=== PATIENT | female | born 1970 | race African-American/Black ===

== ENCOUNTER 2019-04-19 14:54 | Inpatient (IN) | payer OTHER ==
[~2019-04-19] VITALS: Ht 157.5 cm; Wt 69.9 kg
--- NOTE | 2019-04-19 15:26 | PHYS DOC ---
Past Medical History Past Medical History: Hypertension (AGATHA DOHERTY APRN) Past Surgical History: No Surgical History (AGATHA DOHERTY APRN) Alcohol Use: Rarely (AGATHA DOHERTY APRN) Adult General Chief Complaint Chief Complaint: ABDOMINAL PAIN HPI HPI Patient is a 48 year old female with history of hypertension presents to the ED today complaining of 5 out of 10 left-sided abdominal pain with nausea vomiting and diarrhea that began 5 days ago after arriving into the [facility] from [place] where she resides. Patient states sitting up exacerbates the pain. Denies any hematemesis or melena. She states laying on her back the pain. Denies any chest pain or shortness of breath. (AGATHA DOHERTY APRN) Review of Systems Review of Systems Constitutional: Denies fever or chills [] Eyes: Denies change in visual acuity, redness, or eye pain [] HENT: Denies nasal congestion or sore throat [] Respiratory: Denies cough or shortness of breath [] Cardiovascular: No additional information not addressed in HPI [] GI: Reports left-sided abdominal pain, nausea, vomiting, diarrhea : Denies dysuria or hematuria [] Musculoskeletal: Denies back pain or joint pain [] Integument: Denies rash or skin lesions [] Neurologic: Denies headache, focal weakness or sensory changes [] All other systems were reviewed and found to be within normal limits, except as documented in this note. (AGATHA DOHERTY APRN) Current Medications Current Medications Current Medications Medications (Trade) Dose Ordered Sig/Jose Start Time Stop Time Status Last Admin Dose Admin Ceftriaxone Sodium (Rocephin) 1 gm 1X ONCE 04/19/19 19:00 04/19/19 19:04 DC 04/19/19 19:11 1 GM Famotidine (Pepcid Vial) 20 mg 1X ONCE 04/19/19 15:30 04/19/19 15:31 DC 04/19/19 15:52 20 MG Fentanyl Citrate (Fentanyl 2ml Vial) 50 mcg PRN Q15MIN PRN 04/19/19 15:30 04/20/19 15:29 04/19/19 17:46 50 MCG Info (CONTRAST GIVEN -- Rx MONITORING) 1 each PRN DAILY PRN 04/19/19 16:00 04/21/19 15:59 Iohexol (Omnipaque 300 Mg/ml) 75 ml 1X ONCE 04/19/19 15:45 04/19/19 15:48 DC Morphine Sulfate (Morphine Sulfate) 4 mg PRN Q2HR PRN 04/19/19 19:00 04/20/19 18:59 04/19/19 19:10 4 MG Ondansetron HCl (Zofran) 4 mg PRN Q8HRS PRN 04/19/19 19:00 04/20/19 18:59 04/19/19 19:11 4 MG Sodium Chloride 1,000 ml @ 125 mls/hr 1X ONCE 04/19/19 19:00 04/20/19 02:59 (MORENA HO DO) Allergies Allergies Allergies Coded Allergies Type Severity Reaction Last Updated Verified No Known Drug Allergies 04/19/19 No (MORENA HO DO) Physical Exam Physical Exam Constitutional: Well developed, well nourished, no acute distress, non-toxic appearance. [] HENT: Normocephalic, atraumatic, bilateral external ears normal, oropharynx moist, no oral exudates, nose normal. [] Eyes: PERRLA, EOMI, conjunctiva normal, no discharge. [] Neck: Normal range of motion, no tenderness, supple, no stridor. [] Cardiovascular:Heart rate regular rhythm, no murmur [] Lungs & Thorax: Bilateral breath sounds clear to auscultation [] Abdomen: Bowel sounds normal, soft, diffuse tenderness the left side of the abdomen, slight tenderness on the right lower quadrant with negative psoas sign, negative obturator sign, negative Rovsing sign, negative Jo sign, no masses, no pulsatile masses. [] Patient is dry heaving. Skin: Warm, dry, no erythema, no rash. [] Back: No tenderness, no CVA tenderness. [] Extremities: No tenderness, no cyanosis, no clubbing, ROM intact, no edema. [] Neurologic: Alert and oriented X 3, normal motor function, normal sensory function, no focal deficits noted. [] Psychologic: Affect normal, judgement normal, mood normal. [] (AGATHA DOHERTY APRN) Current Patient Data Vital Signs Vital Signs Date Time Temp Pulse Resp B/P (MAP) Pulse Ox O2 Delivery O2 Flow Rate FiO2 04/19/19 19:10 18 99 Room Air 04/19/19 18:00 98 106/19 16:00 135/92 (106) 04/19/19 15:02 98.0 98.0 (MORENA HO DO) Lab Values Laboratory Tests Test 04/19/19 15:05 04/19/19 15:06 04/19/19 18:30 White Blood Count 6.5 x10^3/uL (4.0-11.0) Red Blood Count 5.62 x10^6/uL (3.50-5.40) H Hemoglobin 15.9 g/dL (12.0-15.5) H Hematocrit 47.8 % (36.0-47.0) H Mean Corpuscular Volume 85 fL (79-100) Mean Corpuscular Hemoglobin 28 pg (25-35) Mean Corpuscular Hemoglobin Concent 33 g/dL (31-37) Red Cell Distribution Width 13.2 % (11.5-14.5) Platelet Count 356 x10^3/uL (140-400) Neutrophils (%) (Auto) 70 % (31-73) Lymphocytes (%) (Auto) 16 % (24-48) L Monocytes (%) (Auto) 14 % (0-9) H Eosinophils (%) (Auto) 0 % (0-3) Basophils (%) (Auto) 0 % (0-3) Neutrophils # (Auto) 4.5 x10^3/uL (1.8-7.7) Lymphocytes # (Auto) 1.0 x10^3/uL (1.0-4.8) Monocytes # (Auto) 0.9 x10^3/uL (0.0-1.1) Eosinophils # (Auto) 0.0 x10^3/uL (0.0-0.7) Basophils # (Auto) 0.0 x10^3/uL (0.0-0.2) Sodium Level 137 mmol/L (136-145) Potassium Level 3.4 mmol/L (3.5-5.1) L Chloride Level 90 mmol/L (98-107) L Carbon Dioxide Level 31 mmol/L (21-32) Anion Gap 16 (6-14) H Blood Urea Nitrogen 49 mg/dL (7-20) H Creatinine 2.1 mg/dL (0.6-1.0) H Estimated GFR (Cockcroft-Gault) 24.9 BUN/Creatinine Ratio 23 (6-20) H Glucose Level 161 mg/dL (70-99) H Calcium Level 10.9 mg/dL (8.5-10.1) H Magnesium Level 2.6 mg/dL (1.8-2.4) H Total Bilirubin 1.4 mg/dL (0.2-1.0) H Aspartate Amino Transferase (AST) 23 U/L (15-37) Alanine Aminotransferase (ALT) 28 U/L (14-59) Alkaline Phosphatase 57 U/L (46-116) Creatine Kinase 80 U/L (26-192) Creatine Kinase MB (Mass) 1.7 ng/mL (0.0-3.6) Creatine Kinase MB Relative Index 2.1 % (0-4) Troponin I Quantitative 0.026 ng/mL (0.000-0.055) [id number]-Wkm-[id number]-Type Natriuretic Peptide 76 pg/mL (0-124) Total Protein 10.6 g/dL (6.4-8.2) H Albumin 4.7 g/dL (3.4-5.0) Albumin/Globulin Ratio 0.8 (1.0-1.7) L Lipase 339 U/L (73-393) Thyroid Stimulating Hormone (TSH) 1.214 uIU/mL (0.358-3.74) Ethyl Alcohol Level < 10 mg/dL (0-10) Urine Collection Type Void Urine Color [place] Urine Clarity Cloudy Urine pH 5.0 Urine Specific [place] >=1.030 Urine Protein 100 mg/dL (NEG-TRACE) Urine Glucose (UA) 100 mg/dL (NEG) Urine Ketones (Stick) Trace mg/dL (NEG) Urine Blood Negative (NEG) Urine Nitrite Negative (NEG) Urine Bilirubin Moderate (NEG) Urine Urobilinogen Dipstick 1.0 mg/dL (0.2 mg/dL) Urine Leukocyte Esterase Moderate (NEG) Urine RBC 0 /HPF (0-2) Urine WBC 1-4 /HPF (0-4) Urine Squamous Epithelial Cells Many /LPF Urine Amorphous Sediment Present /HPF Urine Bacteria Few /HPF (0-FEW) Urine Hyaline Casts Moderate /HPF Urine Mucus Slight /LPF Urine Opiates Screen Neg (NEG) Urine Methadone Screen Neg (NEG) Urine Barbiturates Neg (NEG) Urine Phencyclidine Screen Neg (NEG) Urine Amphetamine/Methamphetamine Neg (NEG) Urine Benzodiazepines Screen Neg (NEG) Urine Cocaine Screen Neg (NEG) Urine Cannabinoids Screen Neg (NEG) Urine Ethyl Alcohol Neg (NEG) Lactic Acid Level 1.5 mmol/L (0.4-2.0) Laboratory Tests 04/19/19 15:05 Laboratory Tests 04/19/19 15:05 (MORENA HO DO) Lab Values Laboratory Tests Test 04/19/19 15:05 04/19/19 15:06 04/19/19 18:30 White Blood Count 6.5 x10^3/uL (4.0-11.0) Red Blood Count 5.62 x10^6/uL (3.50-5.40) H Hemoglobin 15.9 g/dL (12.0-15.5) H Hematocrit 47.8 % (36.0-47.0) H Mean Corpuscular Volume 85 fL (79-100) Mean Corpuscular Hemoglobin 28 pg (25-35) Mean Corpuscular Hemoglobin Concent 33 g/dL (31-37) Red Cell Distribution Width 13.2 % (11.5-14.5) Platelet Count 356 x10^3/uL (140-400) Neutrophils (%) (Auto) 70 % (31-73) Lymphocytes (%) (Auto) 16 % (24-48) L Monocytes (%) (Auto) 14 % (0-9) H Eosinophils (%) (Auto) 0 % (0-3) Basophils (%) (Auto) 0 % (0-3) Neutrophils # (Auto) 4.5 x10^3/uL (1.8-7.7) Lymphocytes # (Auto) 1.0 x10^3/uL (1.0-4.8) Monocytes # (Auto) 0.9 x10^3/uL (0.0-1.1) Eosinophils # (Auto) 0.0 x10^3/uL (0.0-0.7) Basophils # (Auto) 0.0 x10^3/uL (0.0-0.2) Sodium Level 137 mmol/L (136-145) Potassium Level 3.4 mmol/L (3.5-5.1) L Chloride Level 90 mmol/L (98-107) L Carbon Dioxide Level 31 mmol/L (21-32) Anion Gap 16 (6-14) H Blood Urea Nitrogen 49 mg/dL (7-20) H Creatinine 2.1 mg/dL (0.6-1.0) H Estimated GFR (Cockcroft-Gault) 24.9 BUN/Creatinine Ratio 23 (6-20) H Glucose Level 161 mg/dL (70-99) H Calcium Level 10.9 mg/dL (8.5-10.1) H Magnesium Level 2.6 mg/dL (1.8-2.4) H Total Bilirubin 1.4 mg/dL (0.2-1.0) H Aspartate Amino Transferase (AST) 23 U/L (15-37) Alanine Aminotransferase (ALT) 28 U/L (14-59) Alkaline Phosphatase 57 U/L (46-116) Creatine Kinase 80 U/L (26-192) Creatine Kinase MB (Mass) 1.7 ng/mL (0.0-3.6) Creatine Kinase MB Relative Index 2.1 % (0-4) Troponin I Quantitative 0.026 ng/mL (0.000-0.055) FF-Tah-A-Type Natriuretic Peptide 76 pg/mL (0-124) Total Protein 10.6 g/dL (6.4-8.2) H Albumin 4.7 g/dL (3.4-5.0) Albumin/Globulin Ratio 0.8 (1.0-1.7) L Lipase 339 U/L (73-393) Thyroid Stimulating Hormone (TSH) 1.214 uIU/mL (0.358-3.74) Ethyl Alcohol Level < 10 mg/dL (0-10) Urine Collection Type Void Urine Color [place] Urine Clarity Cloudy Urine pH 5.0 Urine Specific [place] >=1.030 Urine Protein 100 mg/dL (NEG-TRACE) Urine Glucose (UA) 100 mg/dL (NEG) Urine Ketones (Stick) Trace mg/dL (NEG) Urine Blood Negative (NEG) Urine Nitrite Negative (NEG) Urine Bilirubin Moderate (NEG) Urine Urobilinogen Dipstick 1.0 mg/dL (0.2 mg/dL) Urine Leukocyte Esterase Moderate (NEG) Urine RBC 0 /HPF (0-2) Urine WBC 1-4 /HPF (0-4) Urine Squamous Epithelial Cells Many /LPF Urine Amorphous Sediment Present /HPF Urine Bacteria Few /HPF (0-FEW) Urine Hyaline Casts Moderate /HPF Urine Mucus Slight /LPF Urine Opiates Screen Neg (NEG) Urine Methadone Screen Neg (NEG) Urine Barbiturates Neg (NEG) Urine Phencyclidine Screen Neg (NEG) Urine Amphetamine/Methamphetamine Neg (NEG) Urine Benzodiazepines Screen Neg (NEG) Urine Cocaine Screen Neg (NEG) Urine Cannabinoids Screen Neg (NEG) Urine Ethyl Alcohol Neg (NEG) Lactic Acid Level 1.5 mmol/L (0.4-2.0) Laboratory Tests 04/19/19 15:05 Laboratory Tests 04/19/19 15:05 (AGATHA DOHERTY APRN) EKG EKG [address] Loza sinus rhythm non specific ST elevation on V2, V3 (AGATHA DOHERTY APRN) Radiology/Procedures Radiology/Procedures []PROCEDURE: CT ABDOMEN PELVIS WO CONTRAST Exam: CT abdomen and pelvis without contrast INDICATION: Left-sided abdominal pain TECHNIQUE: Sequential axial images through the abdomen and pelvis obtained without IV contrast. Sagittal and coronal reformatted images were reconstructed from the axial data and reviewed. Comparisons: None FINDINGS: Heart size is normal. No pericardial effusion. Visualized lung bases are clear. No pleural effusion. Evaluation of the solid organs is limited secondary to noncontrast technique. Liver, spleen, pancreas, gallbladder and adrenals are unremarkable. No perinephric inflammation or hydronephrosis. No renal or ureteral calculi are identified. Bladder is decompressed not well evaluated. Uterus is not enlarged. IUD is noted within the uterus. No abnormal adnexal mass. There is diffuse fluid-filled dilatation of the stomach and small bowel. The terminal ileum and colon are decompressed. Direct transition point is not identified however is likely somewhere in the pelvis. Abdominal aorta has a normal course and caliber. No enlarged intra-abdominal lymph nodes are identified. No suspicious osseous lesions or acute fractures. IMPRESSION: 1. Findings of high-grade small bowel obstruction with transition point somewhere in the pelvis at the distal ileum. Continued radiographic follow-up is recommended. 2. No signs of perforation. Exposure: One or more of the following in the visualized dose reduction techniques were utilized for this examination: 1. Automated exposure control 2. Adjustment of the MA and/or KV according to patient size 3. Use of iterative of reconstructive technique Electronically signed by: Mg Noriega MD (04/19/2019 4:37 PM) [facility] DICTATED and SIGNED BY: MG NORIEGA MD DATE: 04/19/19 8340 (AGATHA DOHERTY APRN) Course & Med Decision Making Course & Med Decision Making Pertinent Labs and Imaging studies reviewed. (See chart for details) This is a 48-year-old female patient who presents to the ED today with left- sided abdominal pain with nausea vomiting and diarrhea that began 5 days ago after arriving into the [facility] from [place]. Patient arrives in the ED w ith a bucket dry heaving Vitals on arrival to the ED temperature 98.0, heart rate 102, blood pressure 120/79, O2 sats 98%. CBC with a normal WBC, CMP with creatinine of 2.1, BUN of 49, patient denies any history of renal failure, but does seem to 0.6, bilirubin 1.4, troponin 0.026. CT of the abdomen and pelvic was noted for high-grade small bowel obstruction. NG tube was placed-IV fluids continued 1802-consulted with Dr. Manzano who will follow-up with patient [address] Johnson who accepted patient for admission (AGATHA DOHERTY APRN) Dragon Disclaimer Dragon Disclaimer This electronic medical record was generated, in whole or in part, using a voice recognition dictation system. (AGATHA DOHERTY APRN) Departure Departure Impression: Primary Impression: SBO (small bowel obstruction) Additional Impressions: UTI (urinary tract infection) ARF (acute renal failure) Disposition: ADMITTED INPATIENT Condition: STABLE Attending Signature Attending Signature I have reviewed the PA/BUS ESCORT's note and plan of care. I was available for consultation as needed during the patient's visit in the emergency department. I agree with the clinical impression, plan, and disposition. (MORENA HO DO) Problem Qualifiers Additional Impressions: UTI (urinary tract infection) Urinary tract infection type: site unspecified Hematuria presence: without hematuria Qualified Codes: N39.0 - Urinary tract infection, site not speci fied ARF (acute renal failure) Acute renal failure type: unspecified Qualified Codes: N17.9 - Acute kidney failure, unspecified AGATHA DOHERTY APRN Apr 19, 2019 15:26 MORENA HO DO Apr 19, 2019 19:15
[2019-04-19 15:30] LABS: BASO % 0 % (0-3); EOS % 0 % (0-3); HEMATOCRIT 47.8 % (36.0-47.0); HEMOGLOBIN 15.9 g/dL (12.0-15.5); LYMPH % 16 % (24-48); MEAN CORPUSCULAR HEMOGLOBIN 28 pg (25-35); MEAN CORPUSCULAR HGB CONC 33 g/dL (31-37); MEAN CORPUSCULAR VOLUME 85 fL (79-100); MONO # 0.9 x10^3/uL (0.0-1.1); MONO % 14 % (0-9); NEUT # 4.5 x10^3/uL (1.8-7.7); NEUT % 70 % (31-73); PLATELET COUNT 356 x10^3/uL (140-400); RED BLOOD COUNT 5.62 x10^6/uL (3.50-5.40); RED CELL DISTRIBUTION WIDTH 13.2 % (11.5-14.5); WHITE BLOOD COUNT 6.5 x10^3/uL (4.0-11.0)
[2019-04-19] MEDS ORDERED: FAMOTIDINE 20 MG/2 ML VIAL IVP ONE (15:30)
[2019-04-19] MEDS ORDERED: ONDANSETRON PF 4 MG/2 ML VIAL. IV ONE ×2 (15:30→17:45)
[2019-04-19] MEDS ORDERED: IV NORMAL SALINE 1000ML BAG 1,000 ML IV ONE ×3 (15:30→19:00)
[2019-04-19 15:35] LABS: BILIRUBIN,URINE MODERATE (NEG); CLARITY,URINE CLOUDY; COLOR,URINE ORANGE; NITRITE,URINE NEGATIVE (NEG); PROTEIN,URINE 100 mg/dL (NEG-TRACE)
[2019-04-19 15:42] LABS: CALCIUM 10.9 mg/dL (8.5-10.1); CREATININE 2.1 mg/dL (0.6-1.0); GFR 24.9; POTASSIUM 3.4 mmol/L (3.5-5.1)
[2019-04-19 15:42] LABS: AMPHETAMINE/METHAMPHETAMINE NEG (NEG); BARBITURATES NEG (NEG); BENZODIAZEPINES NEG (NEG); CANNABINOIDS NEG (NEG); COCAINE NEG (NEG); METHADONE NEG (NEG); OPIATES NEG (NEG); PHENCYCLIDINE NEG (NEG)
[2019-04-19] MEDS ORDERED: IOHEXOL 300 MG/ML 100ML VIAL. IV ONE (15:45)
[2019-04-19 15:47] LABS: AMORPHOUS SEDIMENT,UR PRESENT /HPF; HYALINE CASTS, URINE MODERATE /HPF; RBC,URINE 0 /HPF (0-2)
[2019-04-19 15:48] LABS: ALBUMIN 4.7 g/dL (3.4-5.0); ALBUMIN/GLOBULIN RATIO 0.8 (1.0-1.7); MAGNESIUM 2.6 mg/dL (1.8-2.4); TOTAL BILIRUBIN 1.4 mg/dL (0.2-1.0); TOTAL PROTEIN 10.6 g/dL (6.4-8.2)
[2019-04-19 15:48] LABS: SQUAMOUS EPITHELIAL CELL,UR MANY /LPF
[2019-04-19 15:49] LABS: BACTERIA,URINE FEW /HPF (0-FEW)
[2019-04-19] MEDS: fentaNYL PF VIAL 100 MCG/2 ML VIAL IV PRN ×2 (15:52→17:46)
[2019-04-19] MEDS ORDERED: CONTRAST GIVEN. MC PRN (16:00)
--- NOTE | 2019-04-19 16:40 | RAD ---
Exam: CT abdomen and pelvis without contrast INDICATION: Left-sided abdominal pain TECHNIQUE: Sequential axial images through the abdomen and pelvis obtained without IV contrast. Sagittal and coronal reformatted images were reconstructed from the axial data and reviewed. Comparisons: None FINDINGS: Heart size is normal. No pericardial effusion. Visualized lung bases are clear. No pleural effusion. Evaluation of the solid organs is limited secondary to noncontrast technique. Liver, spleen, pancreas, gallbladder and adrenals are unremarkable. No perinephric inflammation or hydronephrosis. No renal or ureteral calculi are identified. Bladder is decompressed not well evaluated. Uterus is not enlarged. IUD is noted within the uterus. No abnormal adnexal mass. There is diffuse fluid-filled dilatation of the stomach and small bowel. The terminal ileum and colon are decompressed. Direct transition point is not identified however is likely somewhere in the pelvis. Abdominal aorta has a normal course and caliber. No enlarged intra-abdominal lymph nodes are identified. No suspicious osseous lesions or acute fractures. IMPRESSION: 1. Findings of high-grade small bowel obstruction with transition point somewhere in the pelvis at the distal ileum. Continued radiographic follow-up is recommended. 2. No signs of perforation. Exposure: One or more of the following in the visualized dose reduction techniques were utilized for this examination: 1. Automated exposure control 2. Adjustment of the MA and/or KV according to patient size 3. Use of iterative of reconstructive technique Electronically signed by: Mg Dominique MD (04/19/2019 4:37 PM) [facility]
[2019-04-19] MEDS ORDERED: ONDANSETRON PF 4 MG/2 ML VIAL. IV PRN (19:00)
[2019-04-19] MEDS ORDERED: MORPHINE SULFATE 4 MG/ML VIAL. IV PRN (19:00)
[2019-04-19] MEDS ORDERED: cefTRIAXone IV Push 1 GM VIAL. IVP ONE (19:00)
[2019-04-19 20:20] VITALS: BP 153/87
--- NOTE | 2019-04-19 20:29 | PDOC1 ---
History and Physical Date of Admission Date of Admission DATE: 04/19/19 TIME: 20:17 Identification/Chief Complaint Chief Complaint Abdominal Pain, vomiting Source Source: Patient History of Present Illness History of Present Illness Ms Wu is a 48 year old Afghan female with history of hypertension presents to the ED today complaining of 5 out of 10 left-sided abdominal pain with nausea vomiting and diarrhea that began 5 days ago after arriving into the [facility] from [place] where she resides. Patient states sitting up exacerbates the pain. Denies any hematemesis or melena. She states laying on her back the pain. Denies any chest pain or shortness of breath. She has tried OTC meds with no relief. In ED was found with Cr 2.1, no hx of renal dysfunction, BUN 49, K 3.4 and elevated transaminases and on CT abdomen was found with high grade SBO. NGT was placed in ED to mitigate her copious vomiting. She is being admitted for further care Past Medical History Cardiovascular: HTN Pulmonary: No pertinent hx GI: No pertinent hx Heme/Onc: No pertinent hx Hepatobiliary: No pertinent hx Psych: No pertinent hx Rheumatologic: No pertinent hx Infectious disease: No pertinent hx ENT: No pertinent hx Renal/: No pertinent hx Endocrine: No pertinent hx Dermatology: No pertinent hx Grav: 2 Para: 2 Past Surgical History Past Surgical History: (x2), Other (IUD insertion) Family History Family History: Hypertension Social History Smoke: No ALCOHOL: none Drugs: None Current Problem List Problem List Problems Medical Problems: (1) ARF (acute renal failure) Status: Acute (2) SBO (small bowel obstruction) Status: Acute (3) UTI (urinary tract infection) Status: Acute Current Medications Current Medications Current Medications Fentanyl Citrate (Fentanyl 2ml Vial) 50 mcg PRN Q15MIN PRN IV PAIN GREATER THAN 3/10 Last administered on 04/19/19at 17:46; Start 04/19/19 at 15:30; Stop 04/20/19 at 15:29 Famotidine (Pepcid Vial) 20 mg 1X ONCE IVP Last administered on 04/19/19at 15:52; Start 04/19/19 at 15:30; Stop 04/19/19 at 15:31; Status DC Ondansetron HCl (Zofran) 4 mg 1X ONCE IV Last administered on 04/19/19at 15:49; Start 04/19/19 at 15:30; Stop 04/19/19 at 15:31; Status DC Sodium Chloride 1,000 ml @ 1,000 mls/hr 1X ONCE IV Last administered on 04/19/19at 15:53; Start 04/19/19 at 15:30; Stop 04/19/19 at 16:29; Status DC Iohexol (Omnipaque 300 Mg/ml) 75 ml 1X ONCE IV ; Start 04/19/19 at 15:45; Stop 04/19/19 at 15:48; Status DC Info (CONTRAST GIVEN -- Rx MONITORING) 1 each PRN DAILY PRN MC SEE COMMENTS; Start 04/19/19 at 16:00; Stop 04/21/19 at 15:59 Sodium Chloride 1,000 ml @ 1,000 mls/hr 1X ONCE IV Last administered on 04/19/19at 17:10; Start 04/19/19 at 16:15; Stop 04/19/19 at 17:14; Status DC Ondansetron HCl (Zofran) 4 mg 1X ONCE IV Last administered on 04/19/19at 17:44; Start 04/19/19 at 17:45; Stop 04/19/19 at 17:55; Status DC Ondansetron HCl (Zofran) 4 mg PRN Q8HRS PRN IV NAUSEA/VOMITING Last administered on 04/19/19at 19:11; Start 04/19/19 at 19:00; Stop 04/20/19 at 18:59 Morphine Sulfate (Morphine Sulfate) 4 mg PRN Q2HR PRN IV PAIN; Start 04/19/19 at 19:00; Stop 04/20/19 at 18:59 Ceftriaxone Sodium (Rocephin) 1 gm 1X ONCE IVP Last administered on 04/19/19at 19:11; Start 04/19/19 at 19:00; Stop 04/19/19 at 19:04; Status DC Sodium Chloride 1,000 ml @ 125 mls/hr 1X ONCE IV ; Start 04/19/19 at 19:00; Stop 04/20/19 at 02:59 Allergies Allergies: Coded Allergies: No Known Drug Allergies (Unverified , 04/19/19) ROS General: YES: Appetite; No: Chills, Night Sweats, Fatigue, Malaise, Other PSYCHOLOGICAL ROS: No: Anxiety, Behavioral Disorder, Concentration difficultie, Decreased libido, Depression, Disorientation, Hallucinations, Hostility, Irritablity, Memory difficulties, Mood Swings, Obsessive thoughts, Physical abuse, Sexual abuse, Sleep disturbances, Suicidal ideation, Other Eyes: No Blurry vision, No Decreased vision, No Double vision, No Dry eyes, No Excessive tearing, No Eye Pain, No Itchy Eyes, No Loss of vision, No Photophobia, No Scotomata, No Uses contacts, No Uses glasses, No Other HEENT: No: Heacaches, Visual Changes, Hearing change, Nasal congestion, Nasal discharge, Oral lesions, Sinus pain, Sore Throat, Epistaxis, Sneezing, Snoring, Tinnitus, Vertigo, Vocal changes, Other ALLERGY AND IMMUNOLOGY: No: Hives, Insect Bite Sensitivity, Itchy/Watery Eyes, Nasal Congestion, Post Nasal Drip, Seasonal Allergies, Other Hematological and Lymphatic: No: Bleeding Problems, Blood Clots, Blood Transfusions, Brusing, Night Sweats, Pallor, Swollen Lymph Nodes, Other ENDOCRINE: No: Breast Changes, Galactorrhea, Hair Pattern Changes, Hot Flashes, Malaise/lethargy, Mood Swings, Palpitations, Polydipsia/polyuria, Skin Changes, Temperature Intolerance, Unexpected Weight Changes, Other Breast: No New/Changing Breast Lumps, No Nipple changes, No Nipple discharge, No Other Respiratory: No: Cough, Hemoptysis, Orthopnea, Pleuritic Pain, Shortness of breath, SOB with excertion, Sputum Changes, Stridor, Tachypnea, Wheezing, Other Cardiovascular: No Chest Pain, No Palpitations, No Orthopnea, No Paroxysmal Noc. Dyspnea, No Edema, No Lt Headedness, No Other Gastrointestinal: Yes Nausea, Yes Vomiting, Yes Abdominal Pain, Yes Diarrhea; No Constipation, No Melena, No Hematochezia, No Other Genitourinary: No Dysuria, No Frequency, No Incontinence, No Hematuria, No Retention, No Discharge, No Urgency, No Pain, No Flank Pain, No Other, No , No , No , No , No , No , No Musculoskeletal: No Gait Disturbance, No Joint Pain, No Joint Stiffness, No Joint Swelling, No Muscle Pain, No Muscular Weakness, No Pain In:, No Swelling In:, No Other Neurological: No Behavorial Changes, No Bowel/Bladder ControlChng, No Confusion, No Dizziness, No Gait Disturbance, No Headaches, No Impaired Coord/balance, No Memory Loss, No Numbness/Tingling, No Seizures, No Speech Problems, No Tremors, No Visual Changes, No Weakness, No Other Skin: No Dry Skin, No Eczema, No Hair Changes, No Lumps, No Mole Changes, No Mottling, No Nail Changes, No Pruritus, No Rash, No Skin Lesion Changes, No Other, No Acne Physical Exam General: Alert, Oriented X3, Cooperative, No acute distress HEENT: Atraumatic, PERRLA, EOMI, Mucous membr. moist/pink, Other (NGT in right nares) Lungs: Clear to auscultation, Normal air movement Heart: S1S2, RRR, no gallops, no murmurs Abdomen: Soft, No hepatosplenomegaly, No masses, Other (hyperactive bowel sounds, LLQ tenderness) Rectal Exam: not examined Extremities: No clubbing, No cyanosis, No edema, Normal pulses, No tenderness/swelling Skin: No rashes, No breakdown, No significant lesion Neuro: Normal gait, Normal speech, Strength at 5/5 X4 ext, Normal tone, Sensation intact, Cranial nerves 3-12 NL, Reflexes 2+ Psych/Mental Status: Mental status NL, Mood NL Vitals Vitals Vital Signs Date Time Temp Pulse Resp B/P (MAP) Pulse Ox O2 Delivery O2 Flow Rate FiO2 04/19/19 18:00 98 16 97 Room Air 04/19/19 16:00 135/92 (106) 04/19/19 15:02 98.0 98.0 Labs Labs Laboratory Tests Test 04/19/19 15:05 04/19/19 15:06 04/19/19 18:30 White Blood Count 6.5 x10^3/uL (4.0-11.0) Red Blood Count 5.62 x10^6/uL (3.50-5.40) Hemoglobin 15.9 g/dL (12.0-15.5) Hematocrit 47.8 % (36.0-47.0) Mean Corpuscular Volume 85 fL (79-100) Mean Corpuscular Hemoglobin 28 pg (25-35) Mean Corpuscular Hemoglobin Concent 33 g/dL (31-37) Red Cell Distribution Width 13.2 % (11.5-14.5) Platelet Count 356 x10^3/uL (140-400) Neutrophils (%) (Auto) 70 % (31-73) Lymphocytes (%) (Auto) 16 % (24-48) Monocytes (%) (Auto) 14 % (0-9) Eosinophils (%) (Auto) 0 % (0-3) Basophils (%) (Auto) 0 % (0-3) Neutrophils # (Auto) 4.5 x10^3/uL (1.8-7.7) Lymphocytes # (Auto) 1.0 x10^3/uL (1.0-4.8) Monocytes # (Auto) 0.9 x10^3/uL (0.0-1.1) Eosinophils # (Auto) 0.0 x10^3/uL (0.0-0.7) Basophils # (Auto) 0.0 x10^3/uL (0.0-0.2) Sodium Level 137 mmol/L (136-145) Potassium Level 3.4 mmol/L (3.5-5.1) Chloride Level 90 mmol/L (98-107) Carbon Dioxide Level 31 mmol/L (21-32) Anion Gap 16 (6-14) Blood Urea Nitrogen 49 mg/dL (7-20) Creatinine 2.1 mg/dL (0.6-1.0) Estimated GFR (Cockcroft-Gault) 24.9 BUN/Creatinine Ratio 23 (6-20) Glucose Level 161 mg/dL (70-99) Calcium Level 10.9 mg/dL (8.5-10.1) Magnesium Level 2.6 mg/dL (1.8-2.4) Total Bilirubin 1.4 mg/dL (0.2-1.0) Aspartate Amino Transf (AST/SGOT) 23 U/L (15-37) Alanine Aminotransferase (ALT/SGPT) 28 U/L (14-59) Alkaline Phosphatase 57 U/L (46-116) Creatine Kinase 80 U/L (26-192) Creatine Kinase MB (Mass) 1.7 ng/mL (0.0-3.6) Creatine Kinase MB Relative Index 2.1 % (0-4) Troponin I Quantitative 0.026 ng/mL (0.000-0.055) GJ-Mor-P-Type Natriuretic Peptide 76 pg/mL (0-124) Total Protein 10.6 g/dL (6.4-8.2) Albumin 4.7 g/dL (3.4-5.0) Albumin/Globulin Ratio 0.8 (1.0-1.7) Lipase 339 U/L (73-393) Thyroid Stimulating Hormone (TSH) 1.214 uIU/mL (0.358-3.74) Ethyl Alcohol Level < 10 mg/dL (0-10) Urine Collection Type Void Urine Color [place] Urine Clarity Cloudy Urine pH 5.0 Urine Specific Glen >=1.030 Urine Protein 100 mg/dL (NEG-TRACE) Urine Glucose (UA) 100 mg/dL (NEG) Urine Ketones (Stick) Trace mg/dL (NEG) Urine Blood Negative (NEG) Urine Nitrite Negative (NEG) Urine Bilirubin Moderate (NEG) Urine Urobilinogen Dipstick 1.0 mg/dL (0.2 mg/dL) Urine Leukocyte Esterase Moderate (NEG) Urine RBC 0 /HPF (0-2) Urine WBC 1-4 /HPF (0-4) Urine Squamous Epithelial Cells Many /LPF Urine Amorphous Sediment Present /HPF Urine Bacteria Few /HPF (0-FEW) Urine Hyaline Casts Moderate /HPF Urine Mucus Slight /LPF Urine Opiates Screen Neg (NEG) Urine Methadone Screen Neg (NEG) Urine Barbiturates Neg (NEG) Urine Phencyclidine Screen Neg (NEG) Urine Amphetamine/Methamphetamine Neg (NEG) Urine Benzodiazepines Screen Neg (NEG) Urine Cocaine Screen Neg (NEG) Urine Cannabinoids Screen Neg (NEG) Urine Ethyl Alcohol Neg (NEG) Lactic Acid Level 1.5 mmol/L (0.4-2.0) Laboratory Tests Test 04/19/19 15:05 04/19/19 15:06 04/19/19 18:30 White Blood Count 6.5 x10^3/uL (4.0-11.0) Red Blood Count 5.62 x10^6/uL (3.50-5.40) Hemoglobin 15.9 g/dL (12.0-15.5) Hematocrit 47.8 % (36.0-47.0) Mean Corpuscular Volume 85 fL (79-100) Mean Corpuscular Hemoglobin 28 pg (25-35) Mean Corpuscular Hemoglobin Concent 33 g/dL (31-37) Red Cell Distribution Width 13.2 % (11.5-14.5) Platelet Count 356 x10^3/uL (140-400) Neutrophils (%) (Auto) 70 % (31-73) Lymphocytes (%) (Auto) 16 % (24-48) Monocytes (%) (Auto) 14 % (0-9) Eosinophils (%) (Auto) 0 % (0-3) Basophils (%) (Auto) 0 % (0-3) Neutrophils # (Auto) 4.5 x10^3/uL (1.8-7.7) Lymphocytes # (Auto) 1.0 x10^3/uL (1.0-4.8) Monocytes # (Auto) 0.9 x10^3/uL (0.0-1.1) Eosinophils # (Auto) 0.0 x10^3/uL (0.0-0.7) Basophils # (Auto) 0.0 x10^3/uL (0.0-0.2) Sodium Level 137 mmol/L (136-145) Potassium Level 3.4 mmol/L (3.5-5.1) Chloride Level 90 mmol/L (98-107) Carbon Dioxide Level 31 mmol/L (21-32) Anion Gap 16 (6-14) Blood Urea Nitrogen 49 mg/dL (7-20) Creatinine 2.1 mg/dL (0.6-1.0) Estimated GFR (Cockcroft-Gault) 24.9 BUN/Creatinine Ratio 23 (6-20) Glucose Level 161 mg/dL (70-99) Calcium Level 10.9 mg/dL (8.5-10.1) Magnesium Level 2.6 mg/dL (1.8-2.4) Total Bilirubin 1.4 mg/dL (0.2-1.0) Aspartate Amino Transf (AST/SGOT) 23 U/L (15-37) Alanine Aminotransferase (ALT/SGPT) 28 U/L (14-59) Alkaline Phosphatase 57 U/L (46-116) Creatine Kinase 80 U/L (26-192) Creatine Kinase MB (Mass) 1.7 ng/mL (0.0-3.6) Creatine Kinase MB Relative Index 2.1 % (0-4) Troponin I Quantitative 0.026 ng/mL (0.000-0.055) NM-Atz-W-Type Natriuretic Peptide 76 pg/mL (0-124) Total Protein 10.6 g/dL (6.4-8.2) Albumin 4.7 g/dL (3.4-5.0) Albumin/Globulin Ratio 0.8 (1.0-1.7) Lipase 339 U/L (73-393) Thyroid Stimulating Hormone (TSH) 1.214 uIU/mL (0.358-3.74) Ethyl Alcohol Level < 10 mg/dL (0-10) Urine Collection Type Void Urine Color [place] Urine Clarity Cloudy Urine pH 5.0 Urine Specific [place] >=1.030 Urine Protein 100 mg/dL (NEG-TRACE) Urine Glucose (UA) 100 mg/dL (NEG) Urine Ketones (Stick) Trace mg/dL (NEG) Urine Blood Negative (NEG) Urine Nitrite Negative (NEG) Urine Bilirubin Moderate (NEG) Urine Urobilinogen Dipstick 1.0 mg/dL (0.2 mg/dL) Urine Leukocyte Esterase Moderate (NEG) Urine RBC 0 /HPF (0-2) Urine WBC 1-4 /HPF (0-4) Urine Squamous Epithelial Cells Many /LPF Urine Amorphous Sediment Present /HPF Urine Bacteria Few /HPF (0-FEW) Urine Hyaline Casts Moderate /HPF Urine Mucus Slight /LPF Urine Opiates Screen Neg (NEG) Urine Methadone Screen Neg (NEG) Urine Barbiturates Neg (NEG) Urine Phencyclidine Screen Neg (NEG) Urine Amphetamine/Methamphetamine Neg (NEG) Urine Benzodiazepines Screen Neg (NEG) Urine Cocaine Screen Neg (NEG) Urine Cannabinoids Screen Neg (NEG) Urine Ethyl Alcohol Neg (NEG) Lactic Acid Level 1.5 mmol/L (0.4-2.0) Images Images CT abdomen - Heart size is normal. No pericardial effusion. Visualized lung bases are clear. No pleural effusion. Evaluation of the solid organs is limited secondary to noncontrast technique. Liver, spleen, pancreas, gallbladder and adrenals are unremarkable. No perinephric inflammation or hydronephrosis. No renal or ureteral calculi are identified. Bladder is decompressed not well evaluated. Uterus is not enlarged. IUD is noted within the uterus. No abnormal adnexal mass. There is diffuse fluid-filled dilatation of the stomach and small bowel. The terminal ileum and colon are decompressed. Direct transition point is not identified however is likely somewhere in the pelvis. Abdominal aorta has a normal course and caliber. No enlarged intra-abdominal lymph nodes are identified. No suspicious osseous lesions or acute fractures. IMPRESSION: 1. Findings of high-grade small bowel obstruction with transition point somewhere in the pelvis at the distal ileum. Continued radiographic follow-up is recommended. 2. No signs of perforation. VTE Prophylaxis Ordered VTE Prophylaxis Devices: Yes VTE Pharmacological Prophylaxi: No Assessment/Plan Assessment/Plan A/P: SBO - x2 only risk factors. NPO, NGT in place, General surgery consulted. Pain control IV, IVF, anti-emetics IV MARITZA - no known renal history. Likely vasomotor nephropathy from her GI illness prior to SBO. will give aggressive IVF. If no improvement would consult nephro and obtain renal US, urine studies Hypokalemia - likely from diarrhea. Will replace IV, trend Hyperglycemia - possibly stress induced. She does not wish for diabetic testing, in fact wants to go home soon Hypercalcemia - likely from hemoconcentration, will trend Elevated transaminases - likely from GI sx FEN - NPO PPX - SCDs, PPI FULL CODE Dispo - inpatient for SBO MARLON CRONIN MD Apr 19, 2019 20:29
[2019-04-19] MEDS ORDERED: BENZOCAINE/MENTHOL LOZENGE. PO PRN (20:30)
[2019-04-19] MEDS: PANTOPRAZOLE IV PUSH 40 MG VIAL. IVP SCH (20:58)
[2019-04-19] MEDS: IV RINGERS,LACTATED 1000ML 1,000 ML IV SCH (20:59)
[2019-04-19 23:00] VITALS: BP 145/89
--- NOTE | 2019-04-19 23:23 | NUR ---
Pt.arrived around 2019 via bed from ED w/ SBO, ARF and UTI. She is A/O x4 and will make needs known.
[2019-04-20] MEDS ORDERED: AMLO5TAB10 PO (02:19)
[2019-04-20 03:00] VITALS: BP 138/90
[2019-04-20] MEDS: fentaNYL PF VIAL 100 MCG/2 ML VIAL IV PRN (03:58)
[2019-04-20] MEDS: ONDANSETRON PF 4 MG/2 ML VIAL. IV PRN ×2 (04:03→16:35)
[2019-04-20] MEDS: IV RINGERS,LACTATED 1000ML 1,000 ML IV SCH ×2 (04:05→08:27)
[2019-04-20 05:50] LABS: BASO % 0 % (0-3); EOS # 0.1 x10^3/uL (0.0-0.7); EOS % 2 % (0-3); HEMATOCRIT 37.6 % (36.0-47.0); HEMOGLOBIN 12.6 g/dL (12.0-15.5); LYMPH # 1.1 x10^3/uL (1.0-4.8); LYMPH % 20 % (24-48); MEAN CORPUSCULAR HEMOGLOBIN 29 pg (25-35); MEAN CORPUSCULAR HGB CONC 33 g/dL (31-37); MEAN CORPUSCULAR VOLUME 86 fL (79-100); MONO # 1.1 x10^3/uL (0.0-1.1); MONO % 19 % (0-9); NEUT # 3.3 x10^3/uL (1.8-7.7); NEUT % 60 % (31-73); PLATELET COUNT 263 x10^3/uL (140-400); RED CELL DISTRIBUTION WIDTH 12.9 % (11.5-14.5); WHITE BLOOD COUNT 5.5 x10^3/uL (4.0-11.0)
[2019-04-20 06:20] LABS: ALBUMIN 3.4 g/dL (3.4-5.0); CALCIUM 8.7 mg/dL (8.5-10.1); CREATININE 1.1 mg/dL (0.6-1.0); DIRECT BILIRUBIN 0.3 mg/dL (0.0-0.2); GFR 63.6; POTASSIUM 3.4 mmol/L (3.5-5.1); TOTAL BILIRUBIN 0.9 mg/dL (0.2-1.0)
--- NOTE | 2019-04-20 06:28 | EKG ---
[facility] [address] [place] [id number] Test Date: 2019-04-19 Test Time: 15:46:37 Pat Name: VALERIA STEVEN Department: Room: 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
[2019-04-20 07:00] VITALS: BP 136/84
[2019-04-20] MEDS: PANTOPRAZOLE IV PUSH 40 MG VIAL. IVP SCH (08:28)
[2019-04-20] MEDS ORDERED: PHENOL ORAL SPRAY 177ML BOTTLE. PO PRN (08:30)
--- NOTE | 2019-04-20 08:33 | PDOC2 ---
VESTA HERNANDEZ PEN AND PENCIL REPAIRER 04/20/19 0833: CONSULT Date of Consult Date of Consult DATE: 04/20/19 TIME: 08:30 Reason for Consult Reason for Consult: sbo Referring Physician Referring Physician: ER Identification/Chief Complaint Chief Complaint vomiting Source Source: Chart review, Patient History of Present Illness Reason for Visit: Returned from [place] on Saturday, had diarrhea, nausea and emesis. Unable to keep anything down. Diarrhea slowed, however ongoing emesis and inability to keep PO down Minimal flatus at this point only surgical hx is c section x 2 Past Medical History Cardiovascular: HTN Pulmonary: No pertinent hx GI: No pertinent hx Heme/Onc: No pertinent hx Hepatobiliary: No pertinent hx Psych: No pertinent hx Rheumatologic: No pertinent hx Infectious disease: No pertinent hx ENT: No pertinent hx Renal/: No pertinent hx Endocrine: No pertinent hx Dermatology: No pertinent hx Grav: 2 Para: 2 Past Surgical History Past Surgical History: (x2), Other (IUD insertion) Family History Family History: Hypertension Social History No ALCOHOL: none Drugs: None Current Problem List Problem List Problems Medical Problems: (1) ARF (acute renal failure) Status: Acute (2) SBO (small bowel obstruction) Status: Acute (3) UTI (urinary tract infection) Status: Acute Current Medications Current Medications Current Medications Fentanyl Citrate (Fentanyl 2ml Vial) 50 mcg PRN Q15MIN PRN IV PAIN GREATER THAN 3/10 Last administered on 04/20/19at 03:58; Start 04/19/19 at 15:30; Stop 04/20/19 at 15:29 Famotidine (Pepcid Vial) 20 mg 1X ONCE IVP Last administered on 04/19/19at 15:52; Start 04/19/19 at 15:30; Stop 04/19/19 at 15:31; Status DC Ondansetron HCl (Zofran) 4 mg 1X ONCE IV Last administered on 04/19/19at 15:49; Start 04/19/19 at 15:30; Stop 04/19/19 at 15:31; Status DC Sodium Chloride 1,000 ml @ 1,000 mls/hr 1X ONCE IV Last administered on 04/19/19at 15:53; Start 04/19/19 at 15:30; Stop 04/19/19 at 16:29; Status DC Iohexol (Omnipaque 300 Mg/ml) 75 ml 1X ONCE IV ; Start 04/19/19 at 15:45; Stop 04/19/19 at 15:48; Status DC Info (CONTRAST GIVEN -- Rx MONITORING) 1 each PRN DAILY PRN MC SEE COMMENTS; Start 04/19/19 at 16:00; Stop 04/21/19 at 15:59 Sodium Chloride 1,000 ml @ 1,000 mls/hr 1X ONCE IV Last administered on 04/19/19at 17:10; Start 04/19/19 at 16:15; Stop 04/19/19 at 17:14; Status DC Ondansetron HCl (Zofran) 4 mg 1X ONCE IV Last administered on 04/19/19at 17:44; Start 04/19/19 at 17:45; Stop 04/19/19 at 17:55; Status DC Ondansetron HCl (Zofran) 4 mg PRN Q8HRS PRN IV NAUSEA/VOMITING Last administered on 04/19/19at 19:11; Start 04/19/19 at 19:00; Stop 04/19/19 at 20:22; Status DC Morphine Sulfate (Morphine Sulfate) 4 mg PRN Q2HR PRN IV PAIN; Start 04/19/19 at 19:00 Ceftriaxone Sodium (Rocephin) 1 gm 1X ONCE IVP Last administered on 04/19/19at 19:11; Start 04/19/19 at 19:00; Stop 04/19/19 at 19:04; Status DC Sodium Chloride 1,000 ml @ 125 mls/hr 1X ONCE IV Last administered on 04/19/19at 20:55; Start 04/19/19 at 19:00; Stop 04/20/19 at 02:59; Status DC Ondansetron HCl (Zofran) 4 mg PRN Q6HRS PRN IV NAUSEA/VOMITING Last administered on 04/20/19 04:03; Start 04/19/19 at 20:30 Ringer's Solution 1,000 ml @ 100 mls/hr Q10H IV Last administered on 04/20/19at 08:27; Start 04/19/19 at 20:30 Pantoprazole Sodium (PROTONIX VIAL for IV PUSH) 40 mg DAILYAC IVP Last administered on 04/20/19at 08:28; Start 04/19/19 at 20:30 Throat Lozenges (Cepacol Sore Throat Lozenge) 1 tricia PRN Q2HRS PRN PO SORE THROAT; Start 04/19/19 at 20:30 Active Scripts Active Reported Amlodipine Besylate 5 Mg Tablet 5 Mg PO DAILY Allergies Allergies: Coded Allergies: No Known Drug Allergies (Unverified , 04/19/19) ROS General: YES: Chills, Other (Fevers, subjective) PSYCHOLOGICAL ROS: No: Anxiety, Depression Eyes: No Blurry vision, No Double vision HEENT: YES: Sore Throat; No: Heacaches Hematological and Lymphatic: No: Bleeding Problems, Blood Clots Respiratory: No: Cough, Shortness of breath Cardiovascular: No Chest Pain, No Palpitations Gastrointestinal: Yes Other (see hpi) Genitourinary: No Dysuria, No Hematuria Musculoskeletal: No Joint Pain, No Muscle Pain Neurological: No Impaired Coord/balance, No Numbness/Tingling Skin: No Pruritus, No Rash Physical Exam General: Alert, Oriented X3, Cooperative, No acute distress HEENT: PERRLA, Mucous membr. moist/pink, Other (NG bilious ) Lungs: Clear to auscultation, Normal air movement Heart: Regular rate, Normal S1, Normal S2, No murmurs Abdomen: Soft, Other (ND, NTTP) Extremities: No clubbing, No cyanosis Skin: No rashes, No breakdown Neuro: Normal gait, Normal speech Psych/Mental Status: Mental status NL, Mood NL MUSCULOSKELETAL: No deformity, No swelling Vitals VITALS Vital Signs Date Time Temp Pulse Resp B/P (MAP) Pulse Ox O2 Delivery O2 Flow Rate FiO2 04/20/19 07:00 97.7 75 16 136/84 (101) 98 97.7 04/20/19 04:29 Room Air Labs Labs Laboratory Tests Test 04/19/19 15:05 04/19/19 15:06 04/19/19 18:30 04/20/19 05:00 White Blood Count 6.5 x10^3/uL (4.0-11.0) 5.5 x10^3/uL (4.0-11.0) Red Blood Count 5.62 x10^6/uL (3.50-5.40) 4.40 x10^6/uL (3.50-5.40) Hemoglobin 15.9 g/dL (12.0-15.5) 12.6 g/dL (12.0-15.5) Hematocrit 47.8 % (36.0-47.0) 37.6 % (36.0-47.0) Mean Corpuscular Volume 85 fL (79-100) 86 fL (79-100) Mean Corpuscular Hemoglobin 28 pg (25-35) 29 pg (25-35) Mean Corpuscular Hemoglobin Concent 33 g/dL (31-37) 33 g/dL (31-37) Red Cell Distribution Width 13.2 % (11.5-14.5) 12.9 % (11.5-14.5) Platelet Count 356 x10^3/uL (140-400) 263 x10^3/uL (140-400) Neutrophils (%) (Auto) 70 % (31-73) 60 % (31-73) Lymphocytes (%) (Auto) 16 % (24-48) 20 % (24-48) Monocytes (%) (Auto) 14 % (0-9) 19 % (0-9) Eosinophils (%) (Auto) 0 % (0-3) 2 % (0-3) Basophils (%) (Auto) 0 % (0-3) 0 % (0-3) Neutrophils # (Auto) 4.5 x10^3/uL (1.8-7.7) 3.3 x10^3/uL (1.8-7.7) Lymphocytes # (Auto) 1.0 x10^3/uL (1.0-4.8) 1.1 x10^3/uL (1.0-4.8) Monocytes # (Auto) 0.9 x10^3/uL (0.0-1.1) 1.1 x10^3/uL (0.0-1.1) Eosinophils # (Auto) 0.0 x10^3/uL (0.0-0.7) 0.1 x10^3/uL (0.0-0.7) Basophils # (Auto) 0.0 x10^3/uL (0.0-0.2) 0.0 x10^3/uL (0.0-0.2) Sodium Level 137 mmol/L (136-145) 141 mmol/L (136-145) Potassium Level 3.4 mmol/L (3.5-5.1) 3.4 mmol/L (3.5-5.1) Chloride Level 90 mmol/L (98-107) 101 mmol/L (98-107) Carbon Dioxide Level 31 mmol/L (21-32) 29 mmol/L (21-32) Anion Gap 16 (6-14) 11 (6-14) Blood Urea Nitrogen 49 mg/dL (7-20) 35 mg/dL (7-20) Creatinine 2.1 mg/dL (0.6-1.0) 1.1 mg/dL (0.6-1.0) Estimated GFR (Cockcroft-Gault) 24.9 63.6 BUN/Creatinine Ratio 23 (6-20) Glucose Level 161 mg/dL (70-99) 116 mg/dL (70-99) Calcium Level 10.9 mg/dL (8.5-10.1) 8.7 mg/dL (8.5-10.1) Magnesium Level 2.6 mg/dL (1.8-2.4) Total Bilirubin 1.4 mg/dL (0.2-1.0) 0.9 mg/dL (0.2-1.0) Aspartate Amino Transf (AST/SGOT) 23 U/L (15-37) 19 U/L (15-37) Alanine Aminotransferase (ALT/SGPT) 28 U/L (14-59) 21 U/L (14-59) Alkaline Phosphatase 57 U/L (46-116) 41 U/L (46-116) Creatine Kinase 80 U/L (26-192) Creatine Kinase MB (Mass) 1.7 ng/mL (0.0-3.6) Creatine Kinase MB Relative Index 2.1 % (0-4) Troponin I Quantitative 0.026 ng/mL (0.000-0.055) LR-Uqi-P-Type Natriuretic Peptide 76 pg/mL (0-124) Total Protein 10.6 g/dL (6.4-8.2) 8.0 g/dL (6.4-8.2) Albumin 4.7 g/dL (3.4-5.0) 3.4 g/dL (3.4-5.0) Albumin/Globulin Ratio 0.8 (1.0-1.7) Lipase 339 U/L (73-393) Thyroid Stimulating Hormone (TSH) 1.214 uIU/mL (0.358-3.74) Ethyl Alcohol Level < 10 mg/dL (0-10) Urine Collection Type Void Urine Color [place] Urine Clarity Cloudy Urine pH 5.0 Urine Specific Alpha >=1.030 Urine Protein 100 mg/dL (NEG-TRACE) Urine Glucose (UA) 100 mg/dL (NEG) Urine Ketones (Stick) Trace mg/dL (NEG) Urine Blood Negative (NEG) Urine Nitrite Negative (NEG) Urine Bilirubin Moderate (NEG) Urine Urobilinogen Dipstick 1.0 mg/dL (0.2 mg/dL) Urine Leukocyte Esterase Moderate (NEG) Urine RBC 0 /HPF (0-2) Urine WBC 1-4 /HPF (0-4) Urine Squamous Epithelial Cells Many /LPF Urine Amorphous Sediment Present /HPF Urine Bacteria Few /HPF (0-FEW) Urine Hyaline Casts Moderate /HPF Urine Mucus Slight /LPF Urine Opiates Screen Neg (NEG) Urine Methadone Screen Neg (NEG) Urine Barbiturates Neg (NEG) Urine Phencyclidine Screen Neg (NEG) Urine Amphetamine/Methamphetamine Neg (NEG) Urine Benzodiazepines Screen Neg (NEG) Urine Cocaine Screen Neg (NEG) Urine Cannabinoids Screen Neg (NEG) Urine Ethyl Alcohol Neg (NEG) Lactic Acid Level 1.5 mmol/L (0.4-2.0) Direct Bilirubin 0.3 mg/dL (0.0-0.2) Laboratory Tests Test 04/19/19 15:05 04/19/19 15:06 04/19/19 18:30 04/20/19 05:00 White Blood Count 6.5 x10^3/uL (4.0-11.0) 5.5 x10^3/uL (4.0-11.0) Red Blood Count 5.62 x10^6/uL (3.50-5.40) 4.40 x10^6/uL (3.50-5.40) Hemoglobin 15.9 g/dL (12.0-15.5) 12.6 g/dL (12.0-15.5) Hematocrit 47.8 % (36.0-47.0) 37.6 % (36.0-47.0) Mean Corpuscular Volume 85 fL (79-100) 86 fL (79-100) Mean Corpuscular Hemoglobin 28 pg (25-35) 29 pg (25-35) Mean Corpuscular Hemoglobin Concent 33 g/dL (31-37) 33 g/dL (31-37) Red Cell Distribution Width 13.2 % (11.5-14.5) 12.9 % (11.5-14.5) Platelet Count 356 x10^3/uL (140-400) 263 x10^3/uL (140-400) Neutrophils (%) (Auto) 70 % (31-73) 60 % (31-73) Lymphocytes (%) (Auto) 16 % (24-48) 20 % (24-48) Monocytes (%) (Auto) 14 % (0-9) 19 % (0-9) Eosinophils (%) (Auto) 0 % (0-3) 2 % (0-3) Basophils (%) (Auto) 0 % (0-3) 0 % (0-3) Neutrophils # (Auto) 4.5 x10^3/uL (1.8-7.7) 3.3 x10^3/uL (1.8-7.7) Lymphocytes # (Auto) 1.0 x10^3/uL (1.0-4.8) 1.1 x10^3/uL (1.0-4.8) Monocytes # (Auto) 0.9 x10^3/uL (0.0-1.1) 1.1 x10^3/uL (0.0-1.1) Eosinophils # (Auto) 0.0 x10^3/uL (0.0-0.7) 0.1 x10^3/uL (0.0-0.7) Basophils # (Auto) 0.0 x10^3/uL (0.0-0.2) 0.0 x10^3/uL (0.0-0.2) Sodium Level 137 mmol/L (136-145) 141 mmol/L (136-145) Potassium Level 3.4 mmol/L (3.5-5.1) 3.4 mmol/L (3.5-5.1) Chloride Level 90 mmol/L (98-107) 101 mmol/L (98-107) Carbon Dioxide Level 31 mmol/L (21-32) 29 mmol/L (21-32) Anion Gap 16 (6-14) 11 (6-14) Blood Urea Nitrogen 49 mg/dL (7-20) 35 mg/dL (7-20) Creatinine 2.1 mg/dL (0.6-1.0) 1.1 mg/dL (0.6-1.0) Estimated GFR (Cockcroft-Gault) 24.9 63.6 BUN/Creatinine Ratio 23 (6-20) Glucose Level 161 mg/dL (70-99) 116 mg/dL (70-99) Calcium Level 10.9 mg/dL (8.5-10.1) 8.7 mg/dL (8.5-10.1) Magnesium Level 2.6 mg/dL (1.8-2.4) Total Bilirubin 1.4 mg/dL (0.2-1.0) 0.9 mg/dL (0.2-1.0) Aspartate Amino Transf (AST/SGOT) 23 U/L (15-37) 19 U/L (15-37) Alanine Aminotransferase (ALT/SGPT) 28 U/L (14-59) 21 U/L (14-59) Alkaline Phosphatase 57 U/L (46-116) 41 U/L (46-116) Creatine Kinase 80 U/L (26-192) Creatine Kinase MB (Mass) 1.7 ng/mL (0.0-3.6) Creatine Kinase MB Relative Index 2.1 % (0-4) Troponin I Quantitative 0.026 ng/mL (0.000-0.055) EC-Eqm-V-Type Natriuretic Peptide 76 pg/mL (0-124) Total Protein 10.6 g/dL (6.4-8.2) 8.0 g/dL (6.4-8.2) Albumin 4.7 g/dL (3.4-5.0) 3.4 g/dL (3.4-5.0) Albumin/Globulin Ratio 0.8 (1.0-1.7) Lipase 339 U/L (73-393) Thyroid Stimulating Hormone (TSH) 1.214 uIU/mL (0.358-3.74) Ethyl Alcohol Level < 10 mg/dL (0-10) Urine Collection Type Void Urine Color [place] Urine Clarity Cloudy Urine pH 5.0 Urine Specific Alpha >=1.030 Urine Protein 100 mg/dL (NEG-TRACE) Urine Glucose (UA) 100 mg/dL (NEG) Urine Ketones (Stick) Trace mg/dL (NEG) Urine Blood Negative (NEG) Urine Nitrite Negative (NEG) Urine Bilirubin Moderate (NEG) Urine Urobilinogen Dipstick 1.0 mg/dL (0.2 mg/dL) Urine Leukocyte Esterase Moderate (NEG) Urine RBC 0 /HPF (0-2) Urine WBC 1-4 /HPF (0-4) Urine Squamous Epithelial Cells Many /LPF Urine Amorphous Sediment Present /HPF Urine Bacteria Few /HPF (0-FEW) Urine Hyaline Casts Moderate /HPF Urine Mucus Slight /LPF Urine Opiates Screen Neg (NEG) Urine Methadone Screen Neg (NEG) Urine Barbiturates Neg (NEG) Urine Phencyclidine Screen Neg (NEG) Urine Amphetamine/Methamphetamine Neg (NEG) Urine Benzodiazepines Screen Neg (NEG) Urine Cocaine Screen Neg (NEG) Urine Cannabinoids Screen Neg (NEG) Urine Ethyl Alcohol Neg (NEG) Lactic Acid Level 1.5 mmol/L (0.4-2.0) Direct Bilirubin 0.3 mg/dL (0.0-0.2) Assessment/Plan Assessment/Plan sbo vs ileus will check plain films, bowel rest, IVFs DANIELA HERNANDEZ MD 04/20/19 0938: CONSULT Assessment/Plan Assessment/Plan pt seen, interviewed and examined as above 700+ NG output serial exams will follow Thanks for consult VESTA HERNANDEZ APRN Apr 20, 2019 08:33 DANIELA HERNANDEZ MD Apr 20, 2019 09:38
[2019-04-20 09:15] LABS: % BANDS 45 % (0-9); % EOS 3 % (0-5); % LYMPHS 22 % (24-48); % METAS 2 % (0-0); % MONOS 17 % (0-10); % SEGS 11 % (35-66); PLT ESTIMATE ADEQUATE (ADEQUATE)
[2019-04-20 09:16] LABS: OVALOCYTES FEW
[2019-04-20] MEDS ORDERED: BENZOCAINE/MENTHOL LOZENGE. PO PRN (09:45)
[2019-04-20] MEDS: fentaNYL PF VIAL 100 MCG/2 ML VIAL IVP PRN ×2 (10:29→16:35)
--- NOTE | 2019-04-20 10:42 | PDOC ---
PROGRESS NOTES Chief Complaint Chief Complaint HIgh grade SBO with transition point PRev AGE, resolved History of Present Illness History of Present Illness About 900cc in the reservoir from her NGT BElly soft, she feels ok For acute abd series today by GS She is prev healthy, only hx CS x 2 She did have a gastric bug prior to this event PLAN: Keep NPO, IVF, pain med, PPI IV Acute abd series today Vitals Vitals Vital Signs Date Time Temp Pulse Resp B/P (MAP) Pulse Ox O2 Delivery O2 Flow Rate FiO2 04/20/19 10:29 Room Air 04/20/19 07:00 97.7 75 16 136/84 (101) 98 97.7 Physical Exam General: Alert, Oriented X3, Cooperative, No acute distress Heart: Regular rate, Normal S1, Normal S2, No murmurs Abdomen: Soft, Other (ND, NTTP) Extremities: No clubbing, No cyanosis Skin: No rashes, No breakdown Labs LABS Laboratory Tests Test 04/19/19 15:05 04/19/19 15:06 04/19/19 18:30 04/20/19 05:00 White Blood Count 6.5 x10^3/uL (4.0-11.0) 5.5 x10^3/uL (4.0-11.0) Red Blood Count 5.62 x10^6/uL (3.50-5.40) 4.40 x10^6/uL (3.50-5.40) Hemoglobin 15.9 g/dL (12.0-15.5) 12.6 g/dL (12.0-15.5) Hematocrit 47.8 % (36.0-47.0) 37.6 % (36.0-47.0) Mean Corpuscular Volume 85 fL (79-100) 86 fL (79-100) Mean Corpuscular Hemoglobin 28 pg (25-35) 29 pg (25-35) Mean Corpuscular Hemoglobin Concent 33 g/dL (31-37) 33 g/dL (31-37) Red Cell Distribution Width 13.2 % (11.5-14.5) 12.9 % (11.5-14.5) Platelet Count 356 x10^3/uL (140-400) 263 x10^3/uL (140-400) Neutrophils (%) (Auto) 70 % (31-73) 60 % (31-73) Lymphocytes (%) (Auto) 16 % (24-48) 20 % (24-48) Monocytes (%) (Auto) 14 % (0-9) 19 % (0-9) Eosinophils (%) (Auto) 0 % (0-3) 2 % (0-3) Basophils (%) (Auto) 0 % (0-3) 0 % (0-3) Neutrophils # (Auto) 4.5 x10^3/uL (1.8-7.7) 3.3 x10^3/uL (1.8-7.7) Lymphocytes # (Auto) 1.0 x10^3/uL (1.0-4.8) 1.1 x10^3/uL (1.0-4.8) Monocytes # (Auto) 0.9 x10^3/uL (0.0-1.1) 1.1 x10^3/uL (0.0-1.1) Eosinophils # (Auto) 0.0 x10^3/uL (0.0-0.7) 0.1 x10^3/uL (0.0-0.7) Basophils # (Auto) 0.0 x10^3/uL (0.0-0.2) 0.0 x10^3/uL (0.0-0.2) Sodium Level 137 mmol/L (136-145) 141 mmol/L (136-145) Potassium Level 3.4 mmol/L (3.5-5.1) 3.4 mmol/L (3.5-5.1) Chloride Level 90 mmol/L (98-107) 101 mmol/L (98-107) Carbon Dioxide Level 31 mmol/L (21-32) 29 mmol/L (21-32) Anion Gap 16 (6-14) 11 (6-14) Blood Urea Nitrogen 49 mg/dL (7-20) 35 mg/dL (7-20) Creatinine 2.1 mg/dL (0.6-1.0) 1.1 mg/dL (0.6-1.0) Estimated GFR (Cockcroft-Gault) 24.9 63.6 BUN/Creatinine Ratio 23 (6-20) Glucose Level 161 mg/dL (70-99) 116 mg/dL (70-99) Calcium Level 10.9 mg/dL (8.5-10.1) 8.7 mg/dL (8.5-10.1) Magnesium Level 2.6 mg/dL (1.8-2.4) Total Bilirubin 1.4 mg/dL (0.2-1.0) 0.9 mg/dL (0.2-1.0) Aspartate Amino Transf (AST/SGOT) 23 U/L (15-37) 19 U/L (15-37) Alanine Aminotransferase (ALT/SGPT) 28 U/L (14-59) 21 U/L (14-59) Alkaline Phosphatase 57 U/L (46-116) 41 U/L (46-116) Creatine Kinase 80 U/L (26-192) Creatine Kinase MB (Mass) 1.7 ng/mL (0.0-3.6) Creatine Kinase MB Relative Index 2.1 % (0-4) Troponin I Quantitative 0.026 ng/mL (0.000-0.055) VG-Tjy-J-Type Natriuretic Peptide 76 pg/mL (0-124) Total Protein 10.6 g/dL (6.4-8.2) 8.0 g/dL (6.4-8.2) Albumin 4.7 g/dL (3.4-5.0) 3.4 g/dL (3.4-5.0) Albumin/Globulin Ratio 0.8 (1.0-1.7) Lipase 339 U/L (73-393) Thyroid Stimulating Hormone (TSH) 1.214 uIU/mL (0.358-3.74) Ethyl Alcohol Level < 10 mg/dL (0-10) Urine Collection Type Void Urine Color Simpson Urine Clarity Cloudy Urine pH 5.0 Urine Specific [place] >=1.030 Urine Protein 100 mg/dL (NEG-TRACE) Urine Glucose (UA) 100 mg/dL (NEG) Urine Ketones (Stick) Trace mg/dL (NEG) Urine Blood Negative (NEG) Urine Nitrite Negative (NEG) Urine Bilirubin Moderate (NEG) Urine Urobilinogen Dipstick 1.0 mg/dL (0.2 mg/dL) Urine Leukocyte Esterase Moderate (NEG) Urine RBC 0 /HPF (0-2) Urine WBC 1-4 /HPF (0-4) Urine Squamous Epithelial Cells Many /LPF Urine Amorphous Sediment Present /HPF Urine Bacteria Few /HPF (0-FEW) Urine Hyaline Casts Moderate /HPF Urine Mucus Slight /LPF Urine Opiates Screen Neg (NEG) Urine Methadone Screen Neg (NEG) Urine Barbiturates Neg (NEG) Urine Phencyclidine Screen Neg (NEG) Urine Amphetamine/Methamphetamine Neg (NEG) Urine Benzodiazepines Screen Neg (NEG) Urine Cocaine Screen Neg (NEG) Urine Cannabinoids Screen Neg (NEG) Urine Ethyl Alcohol Neg (NEG) Lactic Acid Level 1.5 mmol/L (0.4-2.0) Segmented Neutrophils % 11 % (35-66) Band Neutrophils % 45 % (0-9) Lymphocytes % 22 % (24-48) Monocytes % 17 % (0-10) Eosinophils % 3 % (0-5) Metamyelocytes % 2 % (0-0) Platelet Estimate Adequate (ADEQUATE) Ovalocytes Few Direct Bilirubin 0.3 mg/dL (0.0-0.2) Review of Systems Review of Systems some nausea and mild tenderness, the rest 14 pt neg Assessment and Plan Assessmemt and Plan Problems Medical Problems: (1) ARF (acute renal failure) Status: Acute (2) SBO (small bowel obstruction) Status: Acute (3) UTI (urinary tract infection) Status: Acute Comment Review of Relevant I have reviewed the following items monika (where applicable) has been applied. Labs Laboratory Tests Test 04/19/19 15:05 04/19/19 15:06 04/19/19 18:30 04/20/19 05:00 White Blood Count 6.5 x10^3/uL (4.0-11.0) 5.5 x10^3/uL (4.0-11.0) Red Blood Count 5.62 x10^6/uL (3.50-5.40) 4.40 x10^6/uL (3.50-5.40) Hemoglobin 15.9 g/dL (12.0-15.5) 12.6 g/dL (12.0-15.5) Hematocrit 47.8 % (36.0-47.0) 37.6 % (36.0-47.0) Mean Corpuscular Volume 85 fL (79-100) 86 fL (79-100) Mean Corpuscular Hemoglobin 28 pg (25-35) 29 pg (25-35) Mean Corpuscular Hemoglobin Concent 33 g/dL (31-37) 33 g/dL (31-37) Red Cell Distribution Width 13.2 % (11.5-14.5) 12.9 % (11.5-14.5) Platelet Count 356 x10^3/uL (140-400) 263 x10^3/uL (140-400) Neutrophils (%) (Auto) 70 % (31-73) 60 % (31-73) Lymphocytes (%) (Auto) 16 % (24-48) 20 % (24-48) Monocytes (%) (Auto) 14 % (0-9) 19 % (0-9) Eosinophils (%) (Auto) 0 % (0-3) 2 % (0-3) Basophils (%) (Auto) 0 % (0-3) 0 % (0-3) Neutrophils # (Auto) 4.5 x10^3/uL (1.8-7.7) 3.3 x10^3/uL (1.8-7.7) Lymphocytes # (Auto) 1.0 x10^3/uL (1.0-4.8) 1.1 x10^3/uL (1.0-4.8) Monocytes # (Auto) 0.9 x10^3/uL (0.0-1.1) 1.1 x10^3/uL (0.0-1.1) Eosinophils # (Auto) 0.0 x10^3/uL (0.0-0.7) 0.1 x10^3/uL (0.0-0.7) Basophils # (Auto) 0.0 x10^3/uL (0.0-0.2) 0.0 x10^3/uL (0.0-0.2) Sodium Level 137 mmol/L (136-145) 141 mmol/L (136-145) Potassium Level 3.4 mmol/L (3.5-5.1) 3.4 mmol/L (3.5-5.1) Chloride Level 90 mmol/L (98-107) 101 mmol/L (98-107) Carbon Dioxide Level 31 mmol/L (21-32) 29 mmol/L (21-32) Anion Gap 16 (6-14) 11 (6-14) Blood Urea Nitrogen 49 mg/dL (7-20) 35 mg/dL (7-20) Creatinine 2.1 mg/dL (0.6-1.0) 1.1 mg/dL (0.6-1.0) Estimated GFR (Cockcroft-Gault) 24.9 63.6 BUN/Creatinine Ratio 23 (6-20) Glucose Level 161 mg/dL (70-99) 116 mg/dL (70-99) Calcium Level 10.9 mg/dL (8.5-10.1) 8.7 mg/dL (8.5-10.1) Magnesium Level 2.6 mg/dL (1.8-2.4) Total Bilirubin 1.4 mg/dL (0.2-1.0) 0.9 mg/dL (0.2-1.0) Aspartate Amino Transf (AST/SGOT) 23 U/L (15-37) 19 U/L (15-37) Alanine Aminotransferase (ALT/SGPT) 28 U/L (14-59) 21 U/L (14-59) Alkaline Phosphatase 57 U/L (46-116) 41 U/L (46-116) Creatine Kinase 80 U/L (26-192) Creatine Kinase MB (Mass) 1.7 ng/mL (0.0-3.6) Creatine Kinase MB Relative Index 2.1 % (0-4) Troponin I Quantitative 0.026 ng/mL (0.000-0.055) QT-Byb-P-Type Natriuretic Peptide 76 pg/mL (0-124) Total Protein 10.6 g/dL (6.4-8.2) 8.0 g/dL (6.4-8.2) Albumin 4.7 g/dL (3.4-5.0) 3.4 g/dL (3.4-5.0) Albumin/Globulin Ratio 0.8 (1.0-1.7) Lipase 339 U/L (73-393) Thyroid Stimulating Hormone (TSH) 1.214 uIU/mL (0.358-3.74) Ethyl Alcohol Level < 10 mg/dL (0-10) Urine Collection Type Void Urine Color Simpson Urine Clarity Cloudy Urine pH 5.0 Urine Specific [place] >=1.030 Urine Protein 100 mg/dL (NEG-TRACE) Urine Glucose (UA) 100 mg/dL (NEG) Urine Ketones (Stick) Trace mg/dL (NEG) Urine Blood Negative (NEG) Urine Nitrite Negative (NEG) Urine Bilirubin Moderate (NEG) Urine Urobilinogen Dipstick 1.0 mg/dL (0.2 mg/dL) Urine Leukocyte Esterase Moderate (NEG) Urine RBC 0 /HPF (0-2) Urine WBC 1-4 /HPF (0-4) Urine Squamous Epithelial Cells Many /LPF Urine Amorphous Sediment Present /HPF Urine Bacteria Few /HPF (0-FEW) Urine Hyaline Casts Moderate /HPF Urine Mucus Slight /LPF Urine Opiates Screen Neg (NEG) Urine Methadone Screen Neg (NEG) Urine Barbiturates Neg (NEG) Urine Phencyclidine Screen Neg (NEG) Urine Amphetamine/Methamphetamine Neg (NEG) Urine Benzodiazepines Screen Neg (NEG) Urine Cocaine Screen Neg (NEG) Urine Cannabinoids Screen Neg (NEG) Urine Ethyl Alcohol Neg (NEG) Lactic Acid Level 1.5 mmol/L (0.4-2.0) Segmented Neutrophils % 11 % (35-66) Band Neutrophils % 45 % (0-9) Lymphocytes % 22 % (24-48) Monocytes % 17 % (0-10) Eosinophils % 3 % (0-5) Metamyelocytes % 2 % (0-0) Platelet Estimate Adequate (ADEQUATE) Ovalocytes Few Direct Bilirubin 0.3 mg/dL (0.0-0.2) Laboratory Tests Test 04/19/19 15:05 04/19/19 15:06 04/19/19 18:30 04/20/19 05:00 White Blood Count 6.5 x10^3/uL (4.0-11.0) 5.5 x10^3/uL (4.0-11.0) Red Blood Count 5.62 x10^6/uL (3.50-5.40) 4.40 x10^6/uL (3.50-5.40) Hemoglobin 15.9 g/dL (12.0-15.5) 12.6 g/dL (12.0-15.5) Hematocrit 47.8 % (36.0-47.0) 37.6 % (36.0-47.0) Mean Corpuscular Volume 85 fL (79-100) 86 fL (79-100) Mean Corpuscular Hemoglobin 28 pg (25-35) 29 pg (25-35) Mean Corpuscular Hemoglobin Concent 33 g/dL (31-37) 33 g/dL (31-37) Red Cell Distribution Width 13.2 % (11.5-14.5) 12.9 % (11.5-14.5) Platelet Count 356 x10^3/uL (140-400) 263 x10^3/uL (140-400) Neutrophils (%) (Auto) 70 % (31-73) 60 % (31-73) Lymphocytes (%) (Auto) 16 % (24-48) 20 % (24-48) Monocytes (%) (Auto) 14 % (0-9) 19 % (0-9) Eosinophils (%) (Auto) 0 % (0-3) 2 % (0-3) Basophils (%) (Auto) 0 % (0-3) 0 % (0-3) Neutrophils # (Auto) 4.5 x10^3/uL (1.8-7.7) 3.3 x10^3/uL (1.8-7.7) Lymphocytes # (Auto) 1.0 x10^3/uL (1.0-4.8) 1.1 x10^3/uL (1.0-4.8) Monocytes # (Auto) 0.9 x10^3/uL (0.0-1.1) 1.1 x10^3/uL (0.0-1.1) Eosinophils # (Auto) 0.0 x10^3/uL (0.0-0.7) 0.1 x10^3/uL (0.0-0.7) Basophils # (Auto) 0.0 x10^3/uL (0.0-0.2) 0.0 x10^3/uL (0.0-0.2) Sodium Level 137 mmol/L (136-145) 141 mmol/L (136-145) Potassium Level 3.4 mmol/L (3.5-5.1) 3.4 mmol/L (3.5-5.1) Chloride Level 90 mmol/L (98-107) 101 mmol/L (98-107) Carbon Dioxide Level 31 mmol/L (21-32) 29 mmol/L (21-32) Anion Gap 16 (6-14) 11 (6-14) Blood Urea Nitrogen 49 mg/dL (7-20) 35 mg/dL (7-20) Creatinine 2.1 mg/dL (0.6-1.0) 1.1 mg/dL (0.6-1.0) Estimated GFR (Cockcroft-Gault) 24.9 63.6 BUN/Creatinine Ratio 23 (6-20) Glucose Level 161 mg/dL (70-99) 116 mg/dL (70-99) Calcium Level 10.9 mg/dL (8.5-10.1) 8.7 mg/dL (8.5-10.1) Magnesium Level 2.6 mg/dL (1.8-2.4) Total Bilirubin 1.4 mg/dL (0.2-1.0) 0.9 mg/dL (0.2-1.0) Aspartate Amino Transf (AST/SGOT) 23 U/L (15-37) 19 U/L (15-37) Alanine Aminotransferase (ALT/SGPT) 28 U/L (14-59) 21 U/L (14-59) Alkaline Phosphatase 57 U/L (46-116) 41 U/L (46-116) Creatine Kinase 80 U/L (26-192) Creatine Kinase MB (Mass) 1.7 ng/mL (0.0-3.6) Creatine Kinase MB Relative Index 2.1 % (0-4) Troponin I Quantitative 0.026 ng/mL (0.000-0.055) LE-Csp-Y-Type Natriuretic Peptide 76 pg/mL (0-124) Total Protein 10.6 g/dL (6.4-8.2) 8.0 g/dL (6.4-8.2) Albumin 4.7 g/dL (3.4-5.0) 3.4 g/dL (3.4-5.0) Albumin/Globulin Ratio 0.8 (1.0-1.7) Lipase 339 U/L (73-393) Thyroid Stimulating Hormone (TSH) 1.214 uIU/mL (0.358-3.74) Ethyl Alcohol Level < 10 mg/dL (0-10) Urine Collection Type Void Urine Color Simpson Urine Clarity Cloudy Urine pH 5.0 Urine Specific [place] >=1.030 Urine Protein 100 mg/dL (NEG-TRACE) Urine Glucose (UA) 100 mg/dL (NEG) Urine Ketones (Stick) Trace mg/dL (NEG) Urine Blood Negative (NEG) Urine Nitrite Negative (NEG) Urine Bilirubin Moderate (NEG) Urine Urobilinogen Dipstick 1.0 mg/dL (0.2 mg/dL) Urine Leukocyte Esterase Moderate (NEG) Urine RBC 0 /HPF (0-2) Urine WBC 1-4 /HPF (0-4) Urine Squamous Epithelial Cells Many /LPF Urine Amorphous Sediment Present /HPF Urine Bacteria Few /HPF (0-FEW) Urine Hyaline Casts Moderate /HPF Urine Mucus Slight /LPF Urine Opiates Screen Neg (NEG) Urine Methadone Screen Neg (NEG) Urine Barbiturates Neg (NEG) Urine Phencyclidine Screen Neg (NEG) Urine Amphetamine/Methamphetamine Neg (NEG) Urine Benzodiazepines Screen Neg (NEG) Urine Cocaine Screen Neg (NEG) Urine Cannabinoids Screen Neg (NEG) Urine Ethyl Alcohol Neg (NEG) Lactic Acid Level 1.5 mmol/L (0.4-2.0) Segmented Neutrophils % 11 % (35-66) Band Neutrophils % 45 % (0-9) Lymphocytes % 22 % (24-48) Monocytes % 17 % (0-10) Eosinophils % 3 % (0-5) Metamyelocytes % 2 % (0-0) Platelet Estimate Adequate (ADEQUATE) Ovalocytes Few Direct Bilirubin 0.3 mg/dL (0.0-0.2) Medications Current Medications Fentanyl Citrate (Fentanyl 2ml Vial) 50 mcg PRN Q15MIN PRN IV PAIN GREATER THAN 3/10 Last administered on 04/20/19at 03:58; Start 04/19/19 at 15:30; Stop 04/20/19 at 15:29 Famotidine (Pepcid Vial) 20 mg 1X ONCE IVP Last administered on 04/19/19at 15:52; Start 04/19/19 at 15:30; Stop 04/19/19 at 15:31; Status DC Ondansetron HCl (Zofran) 4 mg 1X ONCE IV Last administered on 04/19/19at 15:49; Start 04/19/19 at 15:30; Stop 04/19/19 at 15:31; Status DC Sodium Chloride 1,000 ml @ 1,000 mls/hr 1X ONCE IV Last administered on 04/19/19at 15:53; Start 04/19/19 at 15:30; Stop 04/19/19 at 16:29; Status DC Iohexol (Omnipaque 300 Mg/ml) 75 ml 1X ONCE IV ; Start 04/19/19 at 15:45; Stop 04/19/19 at 15:48; Status DC Info (CONTRAST GIVEN -- Rx MONITORING) 1 each PRN DAILY PRN MC SEE COMMENTS; Start 04/19/19 at 16:00; Stop 04/21/19 at 15:59 Sodium Chloride 1,000 ml @ 1,000 mls/hr 1X ONCE IV Last administered on 04/19/19at 17:10; Start 04/19/19 at 16:15; Stop 04/19/19 at 17:14; Status DC Ondansetron HCl (Zofran) 4 mg 1X ONCE IV Last administered on 04/19/19at 17:44; Start 04/19/19 at 17:45; Stop 04/19/19 at 17:55; Status DC Ondansetron HCl (Zofran) 4 mg PRN Q8HRS PRN IV NAUSEA/VOMITING Last administered on 04/19/19at 19:11; Start 04/19/19 at 19:00; Stop 04/19/19 at 20:22; Status DC Morphine Sulfate (Morphine Sulfate) 4 mg PRN Q2HR PRN IV PAIN, 1ST CHOICE; Start 04/19/19 at 19:00 Ceftriaxone Sodium (Rocephin) 1 gm 1X ONCE IVP Last administered on 04/19/19at 19:11; Start 04/19/19 at 19:00; Stop 04/19/19 at 19:04; Status DC Sodium Chloride 1,000 ml @ 125 mls/hr 1X ONCE IV Last administered on 04/19/19at 20:55; Start 04/19/19 at 19:00; Stop 04/20/19 at 02:59; Status DC Ondansetron HCl (Zofran) 4 mg PRN Q6HRS PRN IV NAUSEA/VOMITING Last administered on 04/20/19at 04:03; Start 04/19/19 at 20:30 Ringer's Solution 1,000 ml @ 100 mls/hr Q10H IV Last administered on 04/20/19at 08:27; Start 04/19/19 at 20:30 Pantoprazole Sodium (PROTONIX VIAL for IV PUSH) 40 mg DAILYAC IVP Last administered on 04/20/19at 08:28; Start 04/19/19 at 20:30 Throat Lozenges (Cepacol Sore Throat Lozenge) 1 tricia PRN Q2HRS PRN PO SORE THROAT; Start 04/19/19 at 20:30; Stop 04/20/19 at 09:38; Status DC Phenol (Chloraseptic) 1 spray PRN Q2HR PRN PO SORE THROAT; Start 04/20/19 at 08:30 Throat Lozenges (Cepacol Sore Throat Lozenge) 1 tricia PRN Q2HRS PRN PO SORE THROAT; Start 04/20/19 at 09:45; Status UNV Throat Lozenges (Cepacol Sore Throat Lozenge) 1 tricia PRN Q2HRS PRN PO SORE THROAT; Start 04/20/19 at 09:45 Fentanyl Citrate (Fentanyl 2ml Vial) 50 mcg PRN Q2HR PRN IVP PAIN, 2ND CHOICE Last administered on 04/20/19at 10:29; Start 04/20/19 at 10:30 Active Scripts Active Reported Amlodipine Besylate 5 Mg Tablet 5 Mg PO DAILY Vitals/I & O Vital Sign - Last 24 Hours 04/19/19 04/19/19 04/19/19 04/19/19 15:02 15:30 15:52 16:00 Temp 98.0 98.0 Pulse 102 89 75 Resp 12 16 14 16 B/P (MAP) 120/79 (93) 123/97 (106) 135/92 (106) Pulse Ox 98 98 99 93 O2 Delivery Room Air Room Air Room Air Room Air 04/19/19 04/19/19 04/19/19 04/19/19 16:30 17:00 17:30 17:46 Pulse 76 86 76 Resp 18 16 16 16 Pulse Ox 97 98 96 100 O2 Delivery Room Air Room Air Room Air Room Air 04/19/19 04/19/19 04/19/19 04/19/19 18:00 20:20 22:30 23:00 Temp 98.0 97.7 98.0 97.7 Pulse 98 88 93 Resp 16 18 18 B/P (MAP) 153/87 (109) 145/89 (107) Pulse Ox 97 98 96 O2 Delivery Room Air Room Air Room Air Room Air 04/20/19 04/20/19 04/20/19 04/20/19 03:00 03:58 04:29 07:00 Temp 98.7 97.7 98.7 97.7 Pulse 92 75 Resp 18 18 18 16 B/P (MAP) 138/90 (106) 136/84 (101) Pulse Ox 97 97 97 98 O2 Delivery Room Air Room Air Room Air 04/20/19 10:29 O2 Delivery Room Air Intake and Output 04/19/19 04/19/19 04/20/19 15:00 23:00 07:00 Intake Total 1000 ml 1900 ml Balance 1000 ml 1900 ml VINNY HINES MD Apr 20, 2019 10:42
--- NOTE | 2019-04-20 10:58 | NUR ---
SS following for discharge planning. SS reviewed pt chart. Pt is from home and is from [facility]. Pt visiting the [place] Pt reported that she has insurance coverage in [place] and paid for travelers insurance through her bank in [place] prior to traveling. Pt reported that she is certain that her travelers insurance has coverage for Medical and would like assistance from hospital to contact her bank and verify and fax medical records as needed for coverage. Pt reported that she would be willing to sign any consents necessary to allow us to speak with her bank. [facility] notified and Opal Zimmer met with pt and is discussing with administration. SS will continue to follow for discharge planning.
[2019-04-20 11:00] VITALS: BP 135/72
--- NOTE | 2019-04-20 13:37 | RAD ---
EXAM: Abdomen acute complete. HISTORY: Pain. Small bowel obstruction. COMPARISON: 04/19/2019 FINDINGS: A frontal view the chest and frontal upright and supine views of the abdomen are obtained. There are prominent loops of small bowel within the upper and mid abdomen. There is gas within the colon and rectal vault. No clear transition point is seen. There is no free air. There is an IUD overlying the pelvis. The lungs are clear. The heart is normal in size for portable technique. There is a nasogastric tube looped within the stomach. IMPRESSION: 1. Prominent air-filled loops of bowel within the upper and mid abdomen, slightly decreased in caliber compared to the recent CT. This suggests decreasing partial small bowel obstruction. 2. Nasogastric tube looped within the stomach. Electronically signed by: Rose Shelton MD (04/20/2019 1:34 PM) [id number]
--- NOTE | 2019-04-20 14:46 | NUR ---
SRINIVASA [place] notified of xray results, orders recieved.
[2019-04-20 15:00] VITALS: BP 132/71
[2019-04-20] MEDS: BENZOCAINE/MENTHOL LOZENGE. PO PRN ×2 (16:34→18:33)
[2019-04-20 19:00] VITALS: BP 135/74
[2019-04-20 23:00] VITALS: BP 141/75
[2019-04-21] MEDS: BENZOCAINE/MENTHOL LOZENGE. PO PRN (00:09)
[2019-04-21 03:00] VITALS: BP 138/70
[2019-04-21] MEDS: IV RINGERS,LACTATED 1000ML 1,000 ML IV SCH ×2 (04:09→12:30)
[2019-04-21] MEDS: PANTOPRAZOLE IV PUSH 40 MG VIAL. IVP SCH (05:44)
[2019-04-21 07:00] VITALS: BP 138/81
[2019-04-21] MEDS ORDERED: POTASSIUM CHLORIDE 20 MEQ TABLET.ER. PO ONE (09:30)
--- NOTE | 2019-04-21 10:04 | PDOC ---
[employer] PROGRESS NOTE Chief Complaint Chief Complaint High grade SBO with transition point Abdominal pain Nausea Vomiting History of Present Illness History of Present Illness 04/21/19 Pt was seen and examined by bedside Pt was sitting upright and had NGT. No suction was occurring on NGT Pt was anxious and eager to go home Pt was aggravated about not having had food Reviewed results of abdominal series on 04/20/19 w patient Abd series results: Prominent air-filled loops of bowel within the upper and mid abdomen, slightly decreased in caliber compared to the recent CT. This suggests decreasing partial small bowel obstruction. Chart and labs reviewed Potassium remains 3.4. Chloride was 101, up from [address] Manzano about NGT tube removal D/w RN 04/20/19 Pt was seen and examined by Dr. Travis About 900cc in the reservoir from her NGT Belly soft, she feels ok For acute abd series today by GS She is prev healthy, only hx CS x 2 She did have a gastric bug prior to this event Acute abd series today Vitals/I&O Vitals/I&O: Vital Signs Date Time Temp Pulse Resp B/P (MAP) Pulse Ox O2 Delivery O2 Flow Rate FiO2 04/21/19 07:00 98.8 74 16 138/81 (100) 97 Room Air 98.8 I & O 04/20/19 04/20/19 04/21/19 14:59 22:59 06:59 Intake Total 0 ml Output Total 700 ml Balance -700 ml 0 ml Physical Exam General: Alert, Oriented X3, Cooperative, No acute distress Heart: Regular rate, Normal S1, Normal S2, No murmurs Abdomen: Soft, Other (ND, NTTP) Extremities: No clubbing, No cyanosis Skin: No rashes, No breakdown Review of Systems Review of Systems: Pt denies fever Pt denies PITTMAN Pt denies nausea Pt co weakness Assessment and Plan Assessmemt and Plan Problems Medical Problems: (1) ARF (acute renal failure) Status: Acute (2) SBO (small bowel obstruction) Status: Acute (3) UTI (urinary tract infection) Status: Acute Assessment Acute Renal Failure SBO UTI Nausea Vomiting Plan NGT removal Liquid diet and monitor Hope to encourage PO intake Potassium 40meq Home meds Full code Hope to D/C per GI Comment Review of Relevant I have reviewed the following items monika (where applicable) has been applied. Medications: Current Medications Medications (Trade) Dose Ordered Sig/Jose Route PRN Reason Start Time Stop Time Status Last Admin Dose Admin Fentanyl Citrate (Fentanyl 2ml Vial) 50 mcg PRN Q2HR PRN IVP PAIN, 2ND CHOICE 04/20/19 10:30 04/20/19 16:35 ELIEL DRUMMOND III DO Apr 21, 2019 10:04
--- NOTE | 2019-04-21 10:56 | PDOC ---
VESTA HERNANDEZ COBBLER MCKAY 04/21/19 1056: SURGICAL PROGRESS NOTE Subjective tolerating diet having flatus several stools yesterday no abd bloating or nausea currently Vital Signs Vital Signs Date Time Temp Pulse Resp B/P (MAP) Pulse Ox O2 Delivery O2 Flow Rate FiO2 04/21/19 08:00 Room Air 04/21/19 07:00 98.8 74 16 138/81 (100) 97 98.8 I&O Intake and Output 04/21/19 06:59 Intake Total 0 ml Output Total 700 ml Balance -700 ml Intake Oral 0 ml Output Gastric Drainage Total 700 ml # Voids 2 # Bowel Movements 3 General: Alert, Oriented X3, Cooperative, No acute distress Abdomen: Soft, No tenderness Labs Laboratory Tests Test 04/19/19 15:05 04/19/19 15:06 04/19/19 18:30 04/20/19 05:00 White Blood Count 6.5 x10^3/uL (4.0-11.0) 5.5 x10^3/uL (4.0-11.0) Red Blood Count 5.62 x10^6/uL (3.50-5.40) 4.40 x10^6/uL (3.50-5.40) Hemoglobin 15.9 g/dL (12.0-15.5) 12.6 g/dL (12.0-15.5) Hematocrit 47.8 % (36.0-47.0) 37.6 % (36.0-47.0) Mean Corpuscular Volume 85 fL (79-100) 86 fL (79-100) Mean Corpuscular Hemoglobin 28 pg (25-35) 29 pg (25-35) Mean Corpuscular Hemoglobin Concent 33 g/dL (31-37) 33 g/dL (31-37) Red Cell Distribution Width 13.2 % (11.5-14.5) 12.9 % (11.5-14.5) Platelet Count 356 x10^3/uL (140-400) 263 x10^3/uL (140-400) Neutrophils (%) (Auto) 70 % (31-73) 60 % (31-73) Lymphocytes (%) (Auto) 16 % (24-48) 20 % (24-48) Monocytes (%) (Auto) 14 % (0-9) 19 % (0-9) Eosinophils (%) (Auto) 0 % (0-3) 2 % (0-3) Basophils (%) (Auto) 0 % (0-3) 0 % (0-3) Neutrophils # (Auto) 4.5 x10^3/uL (1.8-7.7) 3.3 x10^3/uL (1.8-7.7) Lymphocytes # (Auto) 1.0 x10^3/uL (1.0-4.8) 1.1 x10^3/uL (1.0-4.8) Monocytes # (Auto) 0.9 x10^3/uL (0.0-1.1) 1.1 x10^3/uL (0.0-1.1) Eosinophils # (Auto) 0.0 x10^3/uL (0.0-0.7) 0.1 x10^3/uL (0.0-0.7) Basophils # (Auto) 0.0 x10^3/uL (0.0-0.2) 0.0 x10^3/uL (0.0-0.2) Sodium Level 137 mmol/L (136-145) 141 mmol/L (136-145) Potassium Level 3.4 mmol/L (3.5-5.1) 3.4 mmol/L (3.5-5.1) Chloride Level 90 mmol/L (98-107) 101 mmol/L (98-107) Carbon Dioxide Level 31 mmol/L (21-32) 29 mmol/L (21-32) Anion Gap 16 (6-14) 11 (6-14) Blood Urea Nitrogen 49 mg/dL (7-20) 35 mg/dL (7-20) Creatinine 2.1 mg/dL (0.6-1.0) 1.1 mg/dL (0.6-1.0) Estimated GFR (Cockcroft-Gault) 24.9 63.6 BUN/Creatinine Ratio 23 (6-20) Glucose Level 161 mg/dL (70-99) 116 mg/dL (70-99) Calcium Level 10.9 mg/dL (8.5-10.1) 8.7 mg/dL (8.5-10.1) Magnesium Level 2.6 mg/dL (1.8-2.4) Total Bilirubin 1.4 mg/dL (0.2-1.0) 0.9 mg/dL (0.2-1.0) Aspartate Amino Transf (AST/SGOT) 23 U/L (15-37) 19 U/L (15-37) Alanine Aminotransferase (ALT/SGPT) 28 U/L (14-59) 21 U/L (14-59) Alkaline Phosphatase 57 U/L (46-116) 41 U/L (46-116) Creatine Kinase 80 U/L (26-192) Creatine Kinase MB (Mass) 1.7 ng/mL (0.0-3.6) Creatine Kinase MB Relative Index 2.1 % (0-4) Troponin I Quantitative 0.026 ng/mL (0.000-0.055) NO-Xxe-R-Type Natriuretic Peptide 76 pg/mL (0-124) Total Protein 10.6 g/dL (6.4-8.2) 8.0 g/dL (6.4-8.2) Albumin 4.7 g/dL (3.4-5.0) 3.4 g/dL (3.4-5.0) Albumin/Globulin Ratio 0.8 (1.0-1.7) Lipase 339 U/L (73-393) Thyroid Stimulating Hormone (TSH) 1.214 uIU/mL (0.358-3.74) Ethyl Alcohol Level < 10 mg/dL (0-10) Urine Collection Type Void Urine Color [place] Urine Clarity Cloudy Urine pH 5.0 Urine Specific [place] >=1.030 Urine Protein 100 mg/dL (NEG-TRACE) Urine Glucose (UA) 100 mg/dL (NEG) Urine Ketones (Stick) Trace mg/dL (NEG) Urine Blood Negative (NEG) Urine Nitrite Negative (NEG) Urine Bilirubin Moderate (NEG) Urine Urobilinogen Dipstick 1.0 mg/dL (0.2 mg/dL) Urine Leukocyte Esterase Moderate (NEG) Urine RBC 0 /HPF (0-2) Urine WBC 1-4 /HPF (0-4) Urine Squamous Epithelial Cells Many /LPF Urine Amorphous Sediment Present /HPF Urine Bacteria Few /HPF (0-FEW) Urine Hyaline Casts Moderate /HPF Urine Mucus Slight /LPF Urine Opiates Screen Neg (NEG) Urine Methadone Screen Neg (NEG) Urine Barbiturates Neg (NEG) Urine Phencyclidine Screen Neg (NEG) Urine Amphetamine/Methamphetamine Neg (NEG) Urine Benzodiazepines Screen Neg (NEG) Urine Cocaine Screen Neg (NEG) Urine Cannabinoids Screen Neg (NEG) Urine Ethyl Alcohol Neg (NEG) Lactic Acid Level 1.5 mmol/L (0.4-2.0) Segmented Neutrophils % 11 % (35-66) Band Neutrophils % 45 % (0-9) Lymphocytes % 22 % (24-48) Monocytes % 17 % (0-10) Eosinophils % 3 % (0-5) Metamyelocytes % 2 % (0-0) Platelet Estimate Adequate (ADEQUATE) Ovalocytes Few Direct Bilirubin 0.3 mg/dL (0.0-0.2) Problem List Problems Medical Problems: (1) ARF (acute renal failure) Status: Acute (2) SBO (small bowel obstruction) Status: Acute (3) UTI (urinary tract infection) Status: Acute Assessment/Plan ileus improving monitor how does with diet DANIELA HERNANDEZ MD 04/21/19 1311: SURGICAL PROGRESS NOTE Assessment/Plan pt seen, examined took lunch no c/o home anytime from our standpoint f/u prn VESTA HERNANDEZ APRN Apr 21, 2019 10:56 DANIELA HERNANDEZ MD Apr 21, 2019 13:11
[2019-04-21 11:00] VITALS: BP 148/78
[2019-04-21 15:00] VITALS: BP 130/73
--- NOTE | 2019-04-21 18:11 | NUR ---
Discharge Note: [facility] [place] Discharge instructions and discharge home medications reviewed with Patient and a copy given. All questions have been answered and understanding verbalized. The following instructions and handouts were given: Diet, activity, medication list and follow up instructions provided to patient. Discontinued lines and drains: Peripheral IV discontinued and catheter intact. Patient discharged to Home or Self Care with Friend via [facility]
--- NOTE | 2019-04-24 09:12 | DS ---
DATE OF DISCHARGE: 04/21/2019 ADMISSION DIAGNOSIS: Small-bowel obstruction. DISCHARGE DIAGNOSIS: Resolving small-bowel obstruction. HOSPITAL COURSE: The patient is a pleasant 48-year-old female from the [place]. She presented with a small-bowel obstruction. We placed an NG and suctioned her gut for a day or two and then we rechecked her imaging and it was better. We pulled the NG. In fact, she was doing great. We discharged to home. DISPOSITION: Home. ACTIVITY: As tolerated. DIET: Low sodium. MEDICATIONS: Please see MRAD. TOTAL TIME: 34 minutes. NIAL Juan DRUMMOND DO DR: ETHAN/sukhwinder JOB#: [id number] / [id number]
== END 2019-04-21 18:00 | disposition home or self-care (01) | DRG 389 ==
LOC: ER 14:54 → 4 NORTH 18:21
PROVIDERS: ADMIT Internal Medicine; ATTEND Internal Medicine
DX: K56.609 Unspecified intestinal obstruction, unspecified as to partial versus complete obstruction (principal); N17.9 Acute kidney failure, unspecified; N39.0 Urinary tract infection, site not specified; K56.7 Ileus, unspecified; E87.6 Hypokalemia; R73.9 Hyperglycemia, unspecified; E83.52 Hypercalcemia; I10 Essential (primary) hypertension; Z82.49 Family history of ischemic heart disease and other diseases of the circulatory system; Z79.899 Other long term (current) drug therapy
CPT/HCPCS: 36415; 74022; 74176; 80048; 80053; 80076; 80307; 81001; 82553; 83605; 83690; 83735; 83880; 84443; 84484; 85007; 85025; 93005; 96361; 96374; 96375; 96376; C9113; G0480; J0696; J2270; J2405; J3010; J3490; J7030; J7120; 99285-25; G0378